=== PATIENT | male | born 1985 | race American Indian/Alaskan Native ===

== ENCOUNTER 2017-01-25 05:42 | Inpatient (IN) | payer MEDICAID ==
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
[2017-01-25] MEDS ORDERED: Sodium Chloride 0.9% 1,000 ML IV ONE (06:33)
[2017-01-25] MEDS ORDERED: Sulfacetamide Sodium 10% Ophth Soln OU STA (06:44)
[2017-01-25 06:55] LABS: BASO # 0.1 K/uL (0.0-0.2); BASO % 0.4 % (0.0-2.0); EOS # 0.2 K/uL (0.0-0.7); EOS % 1.9 % (0.0-4.0); HEMATOCRIT 35.3 % (35.0-51.0); LYMPH # 3.1 K/uL (1.0-4.3); LYMPH % 24.9 % (20.0-40.0); MEAN CELL VOLUME 94.4 fL (80.0-94.0); MEAN CORPUSCULAR HEMOGLOBIN 31.8 pg (27.0-31.0); MEAN CORPUSCULAR HGB CONC 33.7 g/dL (33.0-37.0); MEAN PLATELET VOLUME 6.9 fL (7.2-11.7); MONO # 1.5 K/uL (0.0-0.8); RED CELL DISTRIBUTION WIDTH 15.6 % (11.5-14.5); WHITE BLOOD COUNT 12.6 K/uL (4.8-10.8)
[2017-01-25 07:04] LABS: INR 1.1
[2017-01-25 07:06] LABS: VENOUS BLOOD GAS BASE EXCESS 8.1 mmol/L (0.0-2.0); VENOUS BLOOD GAS PCO2 48 mmHg (40-60); VENOUS BLOOD PH 7.45 (7.32-7.43)
[2017-01-25 07:22] LABS: CHLORIDE 90 mmol/L (98-107); POTASSIUM 2.7 mmol/L (3.6-5.2); SODIUM 139 mmol/L (132-148)
[2017-01-25 07:24] LABS: GFR AFRICAN-AMERICAN > 60
[2017-01-25 07:25] LABS: ALB/GLOB RATIO 1.1 (1.0-2.1); ALKALINE PHOSPHATASE 129 U/L (38-126); ALT/SGPT 127 U/L (21-72); AST/SGOT 170 U/L (17-59); BILIRUBIN,TOTAL 0.7 mg/dL (0.2-1.3); BLOOD UREA NITROGEN 14 mg/dL (9-20); CALCIUM 8.8 mg/dl (8.6-10.4); CARBON DIOXIDE 30 mmol/L (22-30); GLUCOSE,RANDOM 123 mg/dL (75-110); TOTAL PROTEIN 7.5 g/dL (6.3-8.3)
[2017-01-25] MEDS ORDERED: Potassium Chloride 20 mEq ER Tab PO STA (07:54)
--- NOTE | 2017-01-25 11:09 | RAD ---
HISTORY: hypokalemia COMPARISON: No prior. FINDINGS: LUNGS: No active pulmonary disease. PLEURA: No significant pleural effusion identified, no pneumothorax apparent. CARDIOVASCULAR: Normal. OSSEOUS STRUCTURES: No significant abnormalities. VISUALIZED UPPER ABDOMEN: Normal. OTHER FINDINGS: None. IMPRESSION: No active disease.
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
[2017-01-25 15:07] LABS: RBC URINE < 1 /hpf (0-3); URINE BILIRUBIN NEGATIVE (NEGATIVE); URINE BLOOD NEGATIVE (NEGATIVE); URINE COLOR Yellow (YELLOW); URINE GLUCOSE (UA) NORMAL (Normal); URINE KETONE NEGATIVE (NEGATIVE); URINE LEUKOCYTE ESTERASE NEG Leu/uL (Negative); URINE PROTEIN NEGATIVE (NEGATIVE); WBC URINE 3 /hpf (0-5)
[2017-01-25] MEDS: Silver Sulfadiazine 1% Cream (20 gm) TOP SCH (19:29)
[2017-01-25 19:41] LABS: CHLORIDE 91 mmol/L (98-107); POTASSIUM 2.7 mmol/L (3.6-5.2); SODIUM 136 mmol/L (132-148)
[2017-01-25 19:44] LABS: CARBON DIOXIDE 33 mmol/L (22-30); GFR AFRICAN-AMERICAN > 60
[2017-01-25 19:45] LABS: BLOOD UREA NITROGEN 13 mg/dL (9-20); CALCIUM 8.1 mg/dl (8.6-10.4); GLUCOSE,RANDOM 90 mg/dL (75-110)
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
[2017-01-25] MEDS ORDERED: Ceftaroline 600 MG in Sodium Chloride 0.9% 100 ML IVPB SCH (22:15)
[2017-01-26] MEDS: Ceftaroline 600 MG in Sodium Chloride 0.9% 100 ML IVPB SCH ×3 (00:02→22:25)
[2017-01-26 07:16] LABS: BASO % 0.4 % (0.0-2.0); EOS # 0.1 K/uL (0.0-0.7); EOS % 1.2 % (0.0-4.0); HEMATOCRIT 29.7 % (35.0-51.0); LYMPH % 19.1 % (20.0-40.0); MEAN CELL VOLUME 94.5 fL (80.0-94.0); MEAN CORPUSCULAR HEMOGLOBIN 31.9 pg (27.0-31.0); MEAN CORPUSCULAR HGB CONC 33.7 g/dL (33.0-37.0); MEAN PLATELET VOLUME 7.1 fL (7.2-11.7); MONO # 1.3 K/uL (0.0-0.8); MONO % 12.8 % (0.0-10.0); RED CELL DISTRIBUTION WIDTH 15.7 % (11.5-14.5); WHITE BLOOD COUNT 10.5 K/uL (4.8-10.8)
[2017-01-26 07:27] LABS: CHLORIDE 92 mmol/L (98-107); SODIUM 136 mmol/L (132-148)
[2017-01-26 07:29] LABS: GFR AFRICAN-AMERICAN > 60
[2017-01-26 07:30] LABS: ALKALINE PHOSPHATASE 98 U/L (38-126); ALT/SGPT 89 U/L (21-72); AST/SGOT 85 U/L (17-59); BILIRUBIN,TOTAL 0.8 mg/dL (0.2-1.3); BLOOD UREA NITROGEN 10 mg/dL (9-20); CALCIUM 7.8 mg/dl (8.6-10.4); CARBON DIOXIDE 34 mmol/L (22-30); GLUCOSE,RANDOM 93 mg/dL (75-110); TOTAL PROTEIN 5.8 g/dL (6.3-8.3)
[2017-01-26] MEDS: Silver Sulfadiazine 1% Cream (20 gm) TOP SCH ×2 (09:06→17:39)
[2017-01-26 09:07] LABS: MAGNESIUM 1.4 mg/dL (1.6-2.3)
[2017-01-26] MEDS ORDERED: Magnesium Sulfate 1 gm in D5W 1 GM/100 ML BAG IVPB ONE (13:00)
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
--- NOTE | 2017-01-26 22:01 | CARD ---
APPROVED REPORT EKG Measurement Heart [id number] DC [id number] [id number] <Conclusion> Sinus tachycardia Otherwise normal ECG
[2017-01-27 08:44] LABS: CHLORIDE 96 mmol/L (98-107); SODIUM 137 mmol/L (132-148)
[2017-01-27 08:45] LABS: BASO % 0.4 % (0.0-2.0); EOS # 0.2 K/uL (0.0-0.7); EOS % 1.5 % (0.0-4.0); HEMATOCRIT 33.2 % (35.0-51.0); LYMPH # 2.3 K/uL (1.0-4.3); LYMPH % 22.6 % (20.0-40.0); MEAN CORPUSCULAR HEMOGLOBIN 32.3 pg (27.0-31.0); MEAN CORPUSCULAR HGB CONC 33.2 g/dL (33.0-37.0); MEAN PLATELET VOLUME 7.4 fL (7.2-11.7); MONO # 1.1 K/uL (0.0-0.8); MONO % 10.9 % (0.0-10.0); POTASSIUM 3.3 mmol/L (3.6-5.2); RED CELL DISTRIBUTION WIDTH 15.2 % (11.5-14.5); WHITE BLOOD COUNT 10.1 K/uL (4.8-10.8)
[2017-01-27 08:47] LABS: ALKALINE PHOSPHATASE 110 U/L (38-126); AST/SGOT 136 U/L (17-59); BILIRUBIN,TOTAL 0.6 mg/dL (0.2-1.3); BLOOD UREA NITROGEN 9 mg/dL (9-20); CARBON DIOXIDE 30 mmol/L (22-30); GFR AFRICAN-AMERICAN > 60; GLUCOSE,RANDOM 78 mg/dL (75-110); TOTAL PROTEIN 6.3 g/dL (6.3-8.3)
[2017-01-27 08:48] LABS: ALT/SGPT 112 U/L (21-72); CALCIUM 8.4 mg/dl (8.6-10.4); MAGNESIUM 1.6 mg/dL (1.6-2.3); MEAN CELL VOLUME 97.5 fL (80.0-94.0)
[2017-01-27] MEDS: Silver Sulfadiazine 1% Cream (20 gm) TOP SCH ×2 (10:24→17:24)
[2017-01-27] MEDS: Ceftaroline 600 MG in Sodium Chloride 0.9% 100 ML IVPB SCH ×2 (11:40→22:21)
[2017-01-27] MEDS: Potassium Chloride 20 mEq ER Tab PO SCH (12:54)
--- NOTE | 2017-01-27 14:29 | CP.PCM.PN ---
Subjective - Date & Time of Evaluation Date of Evaluation: 01/27/17 Time of Evaluation: 14:27 - Subjective Subjective: afebrile leess feet pain k 3.3 iv kcl wound thigh healing culture pending Objective - Vital Signs/Intake and Output Vital Signs (last 24 hours): Temp Pulse Resp BP Pulse Ox 98.5 F 84 20 137/94 H 98 01/26/17 23:54 01/26/17 23:54 01/26/17 23:54 01/26/17 23:54 01/26/17 23:54 - Medications Medications: Current Medications Gabapentin (Neurontin) 100 mg PO TID [facility] Last Admin: 01/27/17 13:08 Dose: 100 mg Heparin Sodium (Porcine) (Heparin) 5,000 units SC Q12 [facility] Last Admin: 01/27/17 10:21 Dose: 5,000 units Ceftaroline Fosamil 600 mg/ (Sodium Chloride) 100 mls @ 100 mls/hr IVPB Q12H [facility] Last Admin: 01/27/17 11:40 Dose: 100 mls/hr Potassium Chloride (Potassium Chloride 20 Meq/100 Ml) 20 meq in 100 mls @ 50 mls/hr IVPB Q2 [facility] Stop: 01/27/17 15:59 Last Admin: 01/27/17 12:55 Dose: 50 mls/hr Nifedipine (Procardia) 10 mg PO DAILY [facility] Last Admin: 01/27/17 10:21 Dose: Not Given Ondansetron HCl (Zofran Inj) 4 mg IVP Q6H PRN PRN Reason: Nausea/Vomiting Pneumococcal Polyvalent Vaccine (Pneumovax 23 Vaccine) 0.5 ml IM .ONCE ONE Stop: 01/28/17 14:01 Potassium Chloride (K-Dur 20 Meq Er Tab) 40 meq PO DAILY [facility] Last Admin: 01/27/17 12:54 Dose: 40 meq Propranolol HCl (Inderal) 10 mg PO Q8H [facility] Last Admin: 01/27/17 13:08 Dose: 10 mg Silver Sulfadiazine (Silvadene 1% 20 Gm) 1 ea TOP BID [facility] Last Admin: 01/27/17 10:24 Dose: 1 applic Tramadol HCl (Ultram) 50 mg PO TID [facility] Last Admin: 01/27/17 13:07 Dose: 50 mg - Labs Labs: 01/27/17 08:20 01/27/17 08:20 PT 11.8 SECONDS (9.7-12.2) 01/25/17 06:52 INR 1.1 01/25/17 06:52 APTT 32 SECONDS (21-34) 01/25/17 06:52 Assessment and Plan (1) Burn Status: Acute (2) Foot pain, bilateral Status: Acute (3) Hypokalemia Status: Acute
[2017-01-28 00:48] VITALS: RESP 20
[2017-01-28] MEDS ORDERED: Enalaprilat 2.5 MG/2 ML IV ONE (00:50)
[2017-01-28] MEDS: Potassium Chloride 20 mEq ER Tab PO SCH (10:04)
[2017-01-28] MEDS: Silver Sulfadiazine 1% Cream (20 gm) TOP SCH ×2 (10:06→18:27)
[2017-01-28] MEDS: Ceftaroline 600 MG in Sodium Chloride 0.9% 100 ML IVPB SCH ×2 (10:06→22:04)
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
[2017-01-28] MEDS ORDERED: Pneumococcal 23-Valent Vaccine IM ONE (14:00)
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
[2017-01-29] MEDS ORDERED: Nitroglycerin 2% Ointment Foilpak UD TOP STA (08:21)
[2017-01-29] MEDS: Potassium Chloride 20 mEq ER Tab PO SCH (09:13)
[2017-01-29] MEDS: Silver Sulfadiazine 1% Cream (20 gm) TOP SCH ×2 (09:22→18:29)
--- NOTE | 2017-01-29 09:35 | US ---
Right upper quadrant abdominal ultrasound History: Elevated liver enzymes. Abdominal pain. Comparison: None available. Technique: Real-time sonography was performed through right upper quadrant of the abdomen. Findings: Liver: 20.3 centimeters in length. Diffuse increased echogenicity of the hepatic parenchymal cortex suggestive for fatty infiltration versus hepatic parenchymal disease. Clinical correlation. Gallbladder appears preserved. No calculi or sludge. Normal wall thickness of 2.5 millimeters. Negative sonographic Miguel's sign. Common bile duct measures 3 millimeters, within normal limits. Limited visualization of the pancreas. Visualized aorta and IVC are preserved. Right kidney: 12.5 x 4.4 x 6.1 centimeters. No calculi or hydronephrosis. Impression: Enlarged liver with diffuse increased echogenicity of the hepatic parenchymal cortex suggestive for fatty infiltration versus hepatic parenchymal disease. Clinical correlation. Limited visualization of the pancreas.
[2017-01-29] MEDS: NIFEdipine 30 mg ER Tab PO SCH (09:40)
[2017-01-29 11:57] LABS: BASO % 0.3 % (0.0-2.0); EOS # 0.2 K/uL (0.0-0.7); EOS % 1.9 % (0.0-4.0); LYMPH % 18.5 % (20.0-40.0); MEAN CORPUSCULAR HEMOGLOBIN 31.6 pg (27.0-31.0); MEAN CORPUSCULAR HGB CONC 33.6 g/dL (33.0-37.0); MEAN PLATELET VOLUME 7.5 fL (7.2-11.7); MONO # 1.4 K/uL (0.0-0.8); MONO % 13.2 % (0.0-10.0); NRBC % 0.1 % (0.0-2.0); RED CELL DISTRIBUTION WIDTH 15.7 % (11.5-14.5); WHITE BLOOD COUNT 10.7 K/uL (4.8-10.8)
[2017-01-29 12:00] LABS: MEAN CELL VOLUME 94.1 fL (80.0-94.0)
[2017-01-29 12:26] LABS: CHLORIDE 96 mmol/L (98-107); POTASSIUM 3.4 mmol/L (3.6-5.2); SODIUM 137 mmol/L (132-148)
[2017-01-29 12:28] LABS: GFR AFRICAN-AMERICAN > 60
[2017-01-29 12:29] LABS: ALKALINE PHOSPHATASE 131 U/L (38-126); ALT/SGPT 154 U/L (21-72); AST/SGOT 124 U/L (17-59); BILIRUBIN,DIRECT 0.6 mg/dL (0.0-0.4); BILIRUBIN,TOTAL 0.7 mg/dL (0.2-1.3); BLOOD UREA NITROGEN 8 mg/dL (9-20); CALCIUM 9.1 mg/dl (8.6-10.4); CARBON DIOXIDE 27 mmol/L (22-30); GLUCOSE,RANDOM 95 mg/dL (75-110)
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
[2017-01-29 18:53] LABS: IRON 96 ug/dL (49-181)
[2017-01-30] MEDS: Potassium Chloride 20 mEq ER Tab PO SCH (09:10)
[2017-01-30] MEDS: NIFEdipine 30 mg ER Tab PO SCH (09:10)
[2017-01-30] MEDS: Silver Sulfadiazine 1% Cream (20 gm) TOP SCH (09:12)
[2017-01-30 11:02] VITALS: BP 146/99; PULSE 93; TEMP 98.1; O2SAT 98
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
== END 2017-01-30 15:49 | disposition home or self-care (01) | DRG 827 ==
LOC: C.ER 05:42 → C.9E 08:57 → C.5T 09:27
PROVIDERS: ADMIT Internal Medicine Cardiovascular Disease; ATTEND Internal Medicine Cardiovascular Disease
DX: T24.212A Burn of second degree of left thigh, initial encounter (principal); E87.6 Hypokalemia; G62.1 Alcoholic polyneuropathy; K70.9 Alcoholic liver disease, unspecified; D72.829 Elevated white blood cell count, unspecified; E11.9 Type 2 diabetes mellitus without complications; F10.10 Alcohol abuse, uncomplicated; F17.210 Nicotine dependence, cigarettes, uncomplicated; E66.01 Morbid (severe) obesity due to excess calories; X11.8XXA Contact with other hot tap-water, initial encounter; Y92.9 Unspecified place or not applicable

== ENCOUNTER 2017-02-01 05:49 | Emergency (ER) | payer MEDICAID ==
[2017-02-01 06:04] VITALS: RESP 20
[2017-02-01] MEDS ORDERED: Sodium Chloride 0.9% 1,000 ML IV ONE (07:25)
[2017-02-01 07:55] LABS: CHLORIDE 105 mmol/L (98-107)
[2017-02-01 07:56] LABS: POTASSIUM 4.7 mmol/L (3.6-5.2); SODIUM 143 mmol/L (132-148)
[2017-02-01 07:59] LABS: ALB/GLOB RATIO 1.1 (1.0-2.1); ALKALINE PHOSPHATASE 132 U/L (38-126); ALT/SGPT 182 U/L (21-72); AST/SGOT 148 U/L (17-59); BILIRUBIN,TOTAL 0.6 mg/dL (0.2-1.3); BLOOD UREA NITROGEN 12 mg/dL (9-20); CALCIUM 9.6 mg/dl (8.6-10.4); CARBON DIOXIDE 18 mmol/L (22-30); GFR AFRICAN-AMERICAN > 60; GLUCOSE,RANDOM 108 mg/dL (75-110); TOTAL PROTEIN 7.7 g/dL (6.3-8.3)
[2017-02-01 08:10] LABS: BASO # 0.1 K/uL (0.0-0.2); BASO % 0.7 % (0.0-2.0); EOS # 0.2 K/uL (0.0-0.7); EOS % 1.6 % (0.0-4.0); LYMPH # 2.5 K/uL (1.0-4.3); MEAN CELL VOLUME 94.1 fL (80.0-94.0); MEAN CORPUSCULAR HEMOGLOBIN 31.4 pg (27.0-31.0); MEAN CORPUSCULAR HGB CONC 33.4 g/dL (33.0-37.0); MEAN PLATELET VOLUME 6.8 fL (7.2-11.7); MONO # 1.4 K/uL (0.0-0.8); MONO % 11.9 % (0.0-10.0); NRBC % 0.1 % (0.0-2.0); RED CELL DISTRIBUTION WIDTH 15.7 % (11.5-14.5)
[2017-02-01] MEDS ORDERED: Sodium Chloride 0.9% 1,000 ML ONE (08:15)
--- NOTE | 2017-02-01 08:39 | C.PDOC ---
History Of Present Illness 31 y/o male, history of DM, presents to ED with c/o burning sensation and tingling to bilateral feet for several months. Patient reports was recently admitted to hospital, discharged 2 days ago. Patient reports he felt tingling sensation in his hands soon after being discharged. Also states he has not taken medications since discharge from hospital. Denies fever, chills, chest pain, SOB, nausea, vomiting, urinary symptoms, or other complaints. Time Seen by Provider: 02/01/17 07:13 Chief Complaint (Nursing): Lower Extremity Problem/Injury History Per: Patient History/Exam Limitations: no limitations Onset/Duration Of Symptoms: Days Current Symptoms Are (Timing): Still Present Recent travel outside of the [place]: No Past Medical History Reviewed: Historical Data, Nursing Documentation, Vital Signs Vital Signs: Last Vital Signs Temp 98.5 F 02/01/17 09:32 Pulse 98 H 02/01/17 09:32 Resp 20 02/01/17 09:32 BP 144/89 02/01/17 09:32 Pulse Ox 99 02/01/17 09:32 - Medical History PMH: Diabetes Family History: States: Unknown Family Hx - Social History Hx Alcohol Use: Yes Hx Substance Use: No - Immunization History Hx Tetanus Toxoid Vaccination: No Hx Influenza Vaccination: No Hx Pneumococcal Vaccination: No Review Of Systems Except As Marked, All Systems Reviewed And Found Negative. Constitutional: Negative for: Fever, Chills Cardiovascular: Negative for: Chest Pain Respiratory: Negative for: Cough, Shortness of Breath, Wheezing Gastrointestinal: Negative for: Nausea, Vomiting, Abdominal Pain, Diarrhea Musculoskeletal: Positive for: Foot Pain (bilateral) Skin: Negative for: Rash Neurological: Positive for: Other (tingling sensation bilateral feet). Negative for: Headache Physical Exam - Physical Exam Appears: Non-toxic, No Acute Distress, Other (obese ) Skin: Warm, Dry Head: Atraumatic, Normacephalic Oral Mucosa: Moist Chest: Symmetrical Cardiovascular: Rhythm Regular Respiratory: Normal Breath Sounds, No Rales, No Rhonchi, No Wheezing Gastrointestinal/Abdominal: Soft, No Tenderness, No Guarding, No Rebound Back: Normal Inspection Extremity: Normal ROM, No Tenderness, Pedal Edema (trace, bilateral), Capillary Refill (< 2 sec.), No Deformity Extremity: Bilateral: Normal Color And Temperature Pulses: Left Dorsalis Pedis: Normal, Right Dorsalis Pedis: Normal Neurological/Psych: Oriented x3, Normal Speech, Normal Cognition, Normal Motor, Normal Sensation ED Course And Treatment - Laboratory Results Result Diagrams: 02/01/17 08:05 02/01/17 07:40 Lab Interpretation: No Acute Changes O2 Sat by Pulse Oximetry: 98 (RA) Pulse Ox Interpretation: Normal Medical Decision Making Medical Decision Making: Plan: * Ultram, gabaentin, Tylenol, IVFs * Labs * Reassess Progress: Labs reviewed showing no acute changes. Potassium is normal. Patient remained afebrile and in no acute distress. Explain results and symptoms likely related to neuropathy. Advise patient to continue his medications and follow up with PCP Disposition Counseled Patient/Family Regarding: Diagnosis, Need For Followup - Disposition Referrals: [facility] [Outside] [facility] [Outside] Disposition: HOME/ ROUTINE Disposition Time: 09:01 Condition: STABLE Additional Instructions: Follow up with your primary medical doctor or clinic in 2-5 days for further evaluation. Take your usual medications as prescribed. Return to the emergency department at any time if symptoms persist or worsen. Instructions: Paresthesia (ED) - POA Present On Arrival: None - Clinical Impression Clinical Impression: Foot pain, bilateral, Bilateral leg paresthesia - PA / GEOTECHNICIAN / Resident Statement MD/DO has reviewed & agrees with the documentation as recorded. - Scribe Statement The provider has reviewed the documentation as recorded by the Scribkarri Iqbal All medical record entries made by the Nellibkarri were at my direction and personally dictated by me. I have reviewed the chart and agree that the record accurately reflects my personal performance of the history, physical exam, medical decision making, and the department course for this patient. I have also personally directed, reviewed, and agree with the discharge instructions and disposition.
[2017-02-01 09:04] LABS: RBC URINE < 1 /hpf (0-3); URINE BILIRUBIN NEGATIVE (NEGATIVE); URINE BLOOD NEGATIVE (NEGATIVE); URINE COLOR Yellow (YELLOW); URINE GLUCOSE (UA) NORMAL (Normal); URINE KETONE NEGATIVE (NEGATIVE); URINE LEUKOCYTE ESTERASE NEG Leu/uL (Negative); URINE PROTEIN NEGATIVE (NEGATIVE); WBC URINE 1 /hpf (0-5)
[2017-02-01 09:33] VITALS: BP 144/89; PULSE 98; TEMP 98.5
[2017-02-01 09:52] VITALS: O2SAT 98
== END 2017-02-01 09:36 | disposition home or self-care (01) ==
LOC: C.ER 05:49
DX: R20.2 Paresthesia of skin (principal); M79.672 Pain in left foot; M79.671 Pain in right foot; E11.9 Type 2 diabetes mellitus without complications
CPT/HCPCS: 80053; 80324; 80345; 80346; 80349; 80353; 80358; 80361; 81001; 82009; 83992; 85025; 96360; 99284; J7040

== ENCOUNTER 2017-03-20 19:22 | Inpatient (IN) | payer MEDICAID ==
[2017-03-20] MEDS ORDERED: Sodium Chloride 0.9% 1,000 ML IV ONE (20:15)
[2017-03-20] MEDS ORDERED: Sodium Chloride 0.9% 1,000 ML ONE (20:29)
[2017-03-20 20:34] LABS: BASO # 0.1 K/uL (0.0-0.2); BASO % 0.5 % (0.0-2.0); EOS # 0.3 K/uL (0.0-0.7); EOS % 1.5 % (0.0-4.0); HEMATOCRIT 33.9 % (35.0-51.0); LYMPH # 2.7 K/uL (1.0-4.3); LYMPH % 11.4 % (20.0-40.0); MEAN CORPUSCULAR HEMOGLOBIN 30.9 pg (27.0-31.0); MEAN CORPUSCULAR HGB CONC 33.6 g/dL (33.0-37.0); MEAN PLATELET VOLUME 7.7 fL (7.2-11.7); MONO # 1.3 K/uL (0.0-0.8); MONO % 5.7 % (0.0-10.0); RED CELL DISTRIBUTION WIDTH 15.9 % (11.5-14.5)
[2017-03-20 20:36] LABS: WHITE BLOOD COUNT 23.5 K/uL (4.8-10.8)
--- NOTE | 2017-03-20 20:36 | C.PDOC ---
History Of Present Illness A 32 y/o male with a PMH of HTN, c/o severe pain to the hands and feet as a stocking and gloves distribution for weeks now. Patient was seen here January 25 initially c/o pain to his feet and had borderline diabetes and hypokalemia and was admitted given IV fluids and potassium and was discharge home. Patient had another visit on the 01 of February for continued burning sensation with the pain now to the hands and feet. Labs were done on the 2nd visit and he was diagnosed with neuropathy. Patient has been seeing Dr. Alejandre who treated him with vitamin D and Folic acid. Pain is intractable and hands and feet are swollen, erythematous , and hot. Denies fever, chills, trauma, or any other complaints. Time Seen by Provider: 03/20/17 20:05 Chief Complaint (Nursing): Abnormal Skin Integrity History Per: Patient History/Exam Limitations: no limitations Onset/Duration Of Symptoms: Days Current Symptoms Are (Timing): Still Present Location Of Injury: Right: Foot, Hand, Left: Foot, Hand Quality Of Symptoms: Painful Severity: Severe Recent travel outside of the [place]: No Additional History Per: Patient Past Medical History Reviewed: Historical Data, Nursing Documentation, Vital Signs Vital Signs: Last Vital Signs Temp 98.9 F 03/20/17 21:24 Pulse 130 H 03/20/17 21:24 Resp 20 03/20/17 21:24 BP 128/89 03/20/17 21:24 Pulse Ox 99 03/20/17 21:24 - Medical History PMH: Diabetes Denies: Chronic Kidney Disease Family History: States: Unknown Family Hx - Social History Hx Alcohol Use: No Hx Substance Use: No - Immunization History Hx Tetanus Toxoid Vaccination: No Hx Influenza Vaccination: No Hx Pneumococcal Vaccination: No Review Of Systems Except As Marked, All Systems Reviewed And Found Negative. Constitutional: Negative for: Fever, Chills, Other (Trauma) Musculoskeletal: Positive for: Hand Pain, Foot Pain Physical Exam - Physical Exam Appears: Non-toxic, In Acute Distress (Significant distress, crying due to pain. ), Other (Pain is intense and makes him nauseous. Crying and vomiting) Skin: Warm, Dry Head: Atraumatic, Normacephalic Cardiovascular: Rhythm Regular Respiratory: Normal Breath Sounds, No Rales, No Rhonchi, No Wheezing Gastrointestinal/Abdominal: Soft, No Tenderness Extremity: Normal ROM, Tenderness, Capillary Refill (<2secs), No Deformity, Other (Light touch causes pain to the hand and feet) Neurological/Psych: Oriented x3, Normal Speech, Normal Cognition ED Course And Treatment - Laboratory Results Result Diagrams: 03/20/17 20:31 03/20/17 20:31 Lab Interpretation: Abnormal (markedly elevated WBC with left shift, Normal glucose, Hypomagnesemia 1.4, Mildly elevated LFTs, ETOH 188.) O2 Sat by Pulse Oximetry: 99 (RA) Pulse Ox Interpretation: Normal Reevaluation Time: 21:57 Reassessment Condition: Unchanged (Patient continues to have pain in his hands and feet despite IV Morphine.) - Physician Consult Information Time Consulting Physician Contacted: 21:58 Physician Contacted: Lasha Vazquez Jr. 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 Medical Decision Making Medical Decision Making: Impression: A 32 y/o male with a PMH of HTN, c/o severe pain to the hands and feet as a stocking and gloves distribution for weeks now. Plans: * Blood work up * Morphine * IV fluids * UA * Reassess Disposition - Disposition Disposition: HOSPITALIZED Disposition Time: 21:57 Condition: FAIR - POA Present On Arrival: None - Clinical Impression Clinical Impression: Neuropathy - Scribe Statement The provider has reviewed the documentation as recorded by the Scribkarri simms All medical record entries made by the Scribe were at my direction and personally dictated by me. I have reviewed the chart and agree that the record accurately reflects my personal performance of the history, physical exam, medical decision making, and the department course for this patient. I have also personally directed, reviewed, and agree with the discharge instructions and disposition.
[2017-03-20 20:41] LABS: CHLORIDE 86 mmol/L (98-107)
[2017-03-20 20:42] LABS: SODIUM 133 mmol/L (132-148)
[2017-03-20 20:44] LABS: GFR AFRICAN-AMERICAN > 60
[2017-03-20 20:45] LABS: ALB/GLOB RATIO 1.1 (1.0-2.1); ALKALINE PHOSPHATASE 96 U/L (38-126); ALT/SGPT 99 U/L (21-72); AST/SGOT 114 U/L (17-59); BILIRUBIN,TOTAL 1.3 mg/dL (0.2-1.3); BLOOD UREA NITROGEN 15 mg/dL (9-20); CALCIUM 8.5 mg/dl (8.6-10.4); CARBON DIOXIDE 26 mmol/L (22-30); GLUCOSE,RANDOM 105 mg/dL (75-110); MAGNESIUM 1.4 mg/dL (1.6-2.3); TOTAL PROTEIN 8.1 g/dL (6.3-8.3)
[2017-03-20 20:46] LABS: ALCOHOL SERUM 188 mg/dl (0-10)
[2017-03-20 20:51] LABS: RBC URINE < 1 /hpf (0-3); URINE BACTERIA RARE (<OCC); URINE BILIRUBIN NEGATIVE (NEGATIVE); URINE BLOOD NEGATIVE (NEGATIVE); URINE COLOR Yellow (YELLOW); URINE GLUCOSE (UA) NORMAL (Normal); URINE KETONE NEGATIVE (NEGATIVE); URINE LEUKOCYTE ESTERASE NEG Leu/uL (Negative); URINE PROTEIN NEGATIVE (NEGATIVE); WBC URINE 2 /hpf (0-5)
[2017-03-20] MEDS ORDERED: Folic Acid 1 MG, Thiamine 100 MG, Multivitamin (MVI) 10 ML in Dextrose 5% In Water 1,00... IV STA (21:50)
[2017-03-21 01:52] LABS: FOLATE 7.2 ng/mL
--- NOTE | 2017-03-21 02:02 | CP.PCM.HP ---
History of Present Illness - History of Present Illness History of Present Illness: CC: "My hands and feet hurt and burn" Patient is a 32 year old male with PMHx significant for HTN and alcohol abuse who presents to the ER with complaint of 6 months of hand and feet burning. Patient states he came to the ER today because the pain was intolerable. Patient states the burning started in his feet and then progressed to include his hands. Patient states his hands are so swollen he has difficulty moving them but is still able to feed, clothe, and clean himself. Patient states he saw his PMD 1 month ago for this condition and was sent to a neurologist for nerve conduction studies. Patient does not recall the name of the neurologist and states he is supposed to follow up soon for the results of the study. Patient states his feet feel numb but he can feel pressure and can sense the floor when he is walking. Patient denies fever and chills but states he did vomit once today. Patient denies other complaints. 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 PMD: [facility] PMHx: HTN PSHx: right ankle surgery FamHx: denies SocialHx: sexually active with women, uses condoms most of the time; smokes a few cigarettes a day for 10 years; drinks 1 pint vodka daily for 5-10 years- last drink today, denies drugs; lives with grandfather; unemployed Present on Admission - Present on Admission Any Indicators Present on Admission: No Review of Systems - Constitutional Constitutional: absent: Chills, Fever - EENT Eyes: absent: Change in Vision Ears: absent: Dizziness - Cardiovascular Cardiovascular: absent: Chest Pain, Dyspnea - Respiratory Respiratory: absent: Cough - Gastrointestinal Gastrointestinal: Vomiting (once) - Genitourinary Genitourinary: absent: Difficulty Urinating, Dysuria - Musculoskeletal Musculoskeletal: Joint Swelling, Numbness, Stiffness, Tingling. absent: Neck Pain - Integumentary Integumentary: Erythema (denies peeling skin) - Neurological Neurological: Tingling - Psychiatric Psychiatric: absent: Anxiety Past Patient History - Past Medical History & Family History Past Medical History?: No - Past Social History Smoking Status: Current Some Days Smoker - CARDIAC Hx Cardiac Disorders: No - PULMONARY Hx Respiratory Disorders: No - NEUROLOGICAL Hx Neurological Disorder: No - HEENT Hx HEENT Problems: No - RENAL Hx Chronic Kidney Disease: No - ENDOCRINE/METABOLIC Hx Endocrine Disorders: No - HEMATOLOGICAL/ONCOLOGICAL Hx Blood Disorders: No - INTEGUMENTARY Hx Dermatological Problems: No - MUSCULOSKELETAL/RHEUMATOLOGICAL Hx Musculoskeletal Disorders: No Hx Falls: No - GASTROINTESTINAL Hx Gastrointestinal Disorders: No - GENITOURINARY/GYNECOLOGICAL Hx Genitourinary Disorders: No - PSYCHIATRIC Hx Substance Use: No - SURGICAL HISTORY Hx Surgeries: Yes Other/Comment: "RIGHT ANKLE SURGERY" - ANESTHESIA Hx Anesthesia: Yes Hx Anesthesia Reactions: No Meds Allergies/Adverse Reactions: Allergies Allergy/AdvReac Type Severity Reaction Status Date / Time No Known Allergies Allergy Verified 02/01/17 06:15 Physical Exam - Constitutional Appears: Non-toxic, No Acute Distress - Head Exam Head Exam: ATRAUMATIC, NORMOCEPHALIC - Eye Exam Eye Exam: EOMI. absent: Periorbital swelling - ENT Exam ENT Exam: Mucous Membranes Moist, Normal Oropharynx - Neck Exam Neck exam: Positive for: Full Rom, Normal Inspection. Negative for: Lymphadenopathy, Tenderness - Respiratory Exam Respiratory Exam: Clear to Auscultation Bilateral, NORMAL BREATHING PATTERN - Cardiovascular Exam Cardiovascular Exam: REGULAR RHYTHM, +S1, +S2 - GI/Abdominal Exam GI & Abdominal Exam: Normal Bowel Sounds, Soft. absent: Tenderness - Extremities Exam Additional comments: b/l hands with erythema, swelling of all digits fine sandpaper like rash on both hands feet b/l with erythema, non-pitting edema hands and feet with tenderness to palpation - Neurological Exam Neurological exam: Alert, CN II-XII Intact, Oriented x3 Additional comments: intact proprioception, no dysmetria on [id number] - Psychiatric Exam Psychiatric exam: Anxious - Skin Skin Exam: Dry, Rash, Warm Results - Vital Signs Recent Vital Signs: Last Vital Signs Temp 98.5 F 03/21/17 00:10 Pulse 110 H 03/21/17 00:10 Resp 20 03/21/17 00:10 BP 159/105 H 03/21/17 00:10 Pulse Ox 100 03/21/17 00:10 - Labs Result Diagrams: 03/20/17 20:31 03/20/17 20:31 Assessment & Plan - Assessment and Plan (Free Text) Assessment: Bilateral hand and foot pain, erythema WBC 23.5, platelets 595 will check blood culture will check rheum studies: lyme, RF, ESR, CRP will check HIV to r/o HIV associated neuropathy will check RPR will check B12, folate will start gabapentin for neuropathy HTN re-start home meds: nifedipine ER 30mg daily, metoprolol 50mg BID, catapres 0.2mg BID heart healthy diet Alcohol abuse alcohol level 188 patient receiving banana bag will start PO folic acid and multivitamin after completion banana bag CIWA protocol seizure precautions ativan IVP prn seizure activity Prophylactic measure pepcid 20mg PO daily heparin sc q8h Plan D/W Dr. Vazquez
[2017-03-21 06:15] LABS: BASO % 0.2 % (0.0-2.0); EOS # 0.4 K/uL (0.0-0.7); EOS % 1.8 % (0.0-4.0); HEMATOCRIT 31.9 % (35.0-51.0); LYMPH # 1.9 K/uL (1.0-4.3); LYMPH % 9.3 % (20.0-40.0); MEAN CELL VOLUME 91.5 fL (80.0-94.0); MEAN CORPUSCULAR HEMOGLOBIN 29.9 pg (27.0-31.0); MEAN CORPUSCULAR HGB CONC 32.7 g/dL (33.0-37.0); MEAN PLATELET VOLUME 7.5 fL (7.2-11.7); MONO # 1.5 K/uL (0.0-0.8); MONO % 7.4 % (0.0-10.0); PLATELET COUNT 511 K/uL (130-400); RED CELL DISTRIBUTION WIDTH 15.6 % (11.5-14.5); WHITE BLOOD COUNT 20.2 K/uL (4.8-10.8)
[2017-03-21 06:26] LABS: ALB/GLOB RATIO 1.2 (1.0-2.1); ALKALINE PHOSPHATASE 97 U/L (38-126); ALT/SGPT 98 U/L (21-72); AST/SGOT 60 U/L (17-59); BILIRUBIN,TOTAL 0.6 mg/dL (0.2-1.3); BLOOD UREA NITROGEN 12 mg/dL (9-20); CALCIUM 8.3 mg/dl (8.6-10.4); CARBON DIOXIDE 31 mmol/L (22-30); CHLORIDE 87 mmol/L (98-107); GFR AFRICAN-AMERICAN > 60; GLUCOSE,RANDOM 105 mg/dL (75-110); SODIUM 131 mmol/L (132-148); TOTAL PROTEIN 6.3 g/dL (6.3-8.3)
[2017-03-21 06:50] LABS: POTASSIUM 2.4 mmol/L (3.6-5.2)
[2017-03-21 08:45] LABS: CHLORIDE 87 mmol/L (98-107); SODIUM 135 mmol/L (132-148)
[2017-03-21 08:48] LABS: BLOOD UREA NITROGEN 11 mg/dL (9-20); CARBON DIOXIDE 32 mmol/L (22-30); GFR AFRICAN-AMERICAN > 60
[2017-03-21 08:49] LABS: CALCIUM 8.6 mg/dl (8.6-10.4); GLUCOSE,RANDOM 96 mg/dL (75-110)
[2017-03-21 08:50] LABS: POTASSIUM 2.5 mmol/L (3.6-5.2)
[2017-03-21] MEDS: Magnesium Sulfate 1 gm in D5W 1 GM/100 ML BAG IVPB SCH ×2 (08:54→10:16)
[2017-03-21] MEDS ORDERED: Potassium Chloride 20 mEq ER Tab PO ONE (09:00)
[2017-03-21] MEDS: Multiple Vitamins Tab PO SCH (09:06)
[2017-03-21 09:27] LABS: EOSINOPHIL 1 % (0-4); NEUTROPHIL 83 % (50-75); TOTAL CELLS COUNTED 100
[2017-03-21] MEDS: NIFEdipine 30 mg ER Tab PO SCH (09:27)
[2017-03-21] MEDS ORDERED: Potassium Chloride 20 mEq ER Tab PO SCH (10:00)
[2017-03-21] MEDS ORDERED: Potassium Chloride 20 mEq/15 ml LIQ UD PO SCH (10:30)
[2017-03-21] MEDS ORDERED: Potassium Chloride 40 MEQ in Sodium Chloride 0.9% 500 ML IV ONE (11:00)
[2017-03-21 11:17] LABS: MAGNESIUM 1.1 mg/dL (1.6-2.3); URIC ACID 8.6 mg/dL (3.5-8.5)
[2017-03-21 11:43] LABS: INR 1.1
[2017-03-21] MEDS: Potassium Chloride 20 mEq/15 ml LIQ UD PO SCH ×2 (12:30→17:52)
[2017-03-21 16:46] LABS: RAPID PLASMA REAGIN NONREACTIVE (NONREACTIVE)
--- NOTE | 2017-03-21 18:58 | CP.PCM.PN ---
<Kaur Kuhn - Last Filed: 03/21/17 19:31> Subjective - Date & Time of Evaluation Date of Evaluation: 03/21/17 Time of Evaluation: 07:00 - Subjective Subjective: Medicine Note for Dr. Vazquez Patient was seen and examined at bedside. Patient reports immense, intermittent bilateral hand pain. Patient's potassium was low this morning, patient vomited due to the number of pills he took. Potassium replenishment replaced in IV fluids instead. Denied fever, chills, headache, chest pain, abdominal pain, d/c , or urinary symptoms. Objective - Vital Signs/Intake and Output Vital Signs (last 24 hours): Temp Pulse Resp BP Pulse Ox 98.7 F 99 H 20 138/94 H 100 03/21/17 15:30 03/21/17 15:30 03/21/17 15:30 03/21/17 15:30 03/21/17 15:30 Intake and Output: 03/21/17 03/21/17 06:59 18:59 Intake Total 1000 680 Output Total 500 600 Balance 500 80 - Medications Medications: Current Medications Clonidine HCl (Catapres) 0.2 mg PO BID [facility] Last Admin: 03/21/17 17:52 Dose: 0.2 mg Famotidine (Pepcid) 20 mg PO DAILY [facility] Last Admin: 03/21/17 09:06 Dose: 20 mg Folic Acid (Folic Acid) 1 mg PO DAILY [facility] Last Admin: 03/21/17 09:05 Dose: 1 mg Gabapentin (Neurontin) 300 mg PO QPM [facility] Heparin Sodium (Porcine) (Heparin) 5,000 units SC Q8 [facility] Last Admin: 03/21/17 13:09 Dose: 5,000 units Potassium Chloride 40 meq/ (Sodium Chloride) 520 mls @ 60 mls/hr IV .Q8H40M ONE Stop: 03/21/17 19:39 Last Admin: 03/21/17 12:30 Dose: 60 mls/hr Ketorolac Tromethamine (Toradol) 30 mg IVP Q6 PRN PRN Reason: Pain, moderate (4-7) Last Admin: 03/21/17 13:05 Dose: 30 mg Lorazepam (Ativan) 2 mg IVP Q4H PRN PRN Reason: Seizure activity Metoprolol Tartrate (Lopressor) 50 mg PO BID [facility] Last Admin: 03/21/17 17:52 Dose: 50 mg Multivitamins (Hexavitamin) 1 tab PO DAILY [facility] Last Admin: 03/21/17 09:06 Dose: 1 tab Nifedipine (Procardia Xl) 30 mg PO DAILY [facility] Last Admin: 03/21/17 09:27 Dose: 30 mg Oxycodone/Acetaminophen (Percocet 5/325 Mg Tab) 1 tab PO Q6H PRN PRN Reason: Pain, severe (8-10) Stop: 03/24/17 12:43 Thiamine HCl (Vitamin B1 Tab) 100 mg PO DAILY [facility] Last Admin: 03/21/17 09:05 Dose: 100 mg - Labs Labs: 03/21/17 06:03 03/21/17 08:32 PT 13.0 SECONDS (9.7-12.2) H 03/21/17 11:28 INR 1.1 03/21/17 11:28 APTT 30 SECONDS (21-34) 03/21/17 11:28 - Constitutional Appears: No Acute Distress - Head Exam Head Exam: NORMAL INSPECTION, NORMOCEPHALIC - Eye Exam Eye Exam: EOMI, Normal appearance, PERRL. absent: Nystagmus, Scleral icterus - ENT Exam ENT Exam: Mucous Membranes Moist - Respiratory Exam Respiratory Exam: Clear to Ausculation Bilateral, NORMAL BREATHING PATTERN. absent: Decreased Breath Sounds, Wheezes - Cardiovascular Exam Cardiovascular Exam: REGULAR RHYTHM, RRR, +S1, +S2 - GI/Abdominal Exam GI & Abdominal Exam: Soft, Normal Bowel Sounds. absent: Distended, Tenderness - Extremities Exam Extremities Exam: Normal Inspection. absent: Pedal Edema, Tenderness - Back Exam Additional comments: b/l hands with erythema, swelling of all digits fine sandpaper like rash on both hands feet b/l with erythema, non-pitting edema hands and feet with tenderness to palpation - Neurological Exam Neurological Exam: Alert, Awake, Oriented x3 - Psychiatric Exam Psychiatric exam: Normal Affect, Normal Mood - Skin Skin Exam: Dry, Intact, Normal Color, Warm Assessment and Plan - Assessment and Plan (Free Text) Plan: Bilateral hand erythema * WBC 23.5, platelets 595 * Neurology consulted- Dr. Jens Silva- help appreciated - Place patient on Gabapentin 300mg PO QHS * Negative studies thus far: HIV, Hep panel, UDS, Hepatitis Panel, RPR, HIV, ASO , * WNL Labs: B12, folate * Elevated Labs: ESR, CRP * F/U blood culture * F/U rheum workup, other labs ordered Neuropathy * Bilateral hands and feet * As per Neurology, Gabapentin 300mg PO QHS Hypokalemia * 2.4, 2.5 * Repleted * F/U AM labs HTN * Restarted home meds: nifedipine ER 30mg daily, metoprolol 50mg BID, catapres 0.2mg BID * Heart healthy diet Alcohol abuse * Alcohol level 188 on admission * [place] protocol * Started PO folic acid, thiamine, and multivitamin after completion banana bag * seizure precaution * ativan IVP prn seizure activity Prophylactic measure * GI PPX: Pepcid 20mg PO daily * DVT PPX: Heparin sc q12h [facility] Hattie Miramontes DO, PGY-1 <Lasha Vazquez Jr. - Last Filed: 03/26/17 10:40> Objective - Vital Signs/Intake and Output Vital Signs (last 24 hours): Temp Pulse Resp BP Pulse Ox 98.0 F 99 H 18 156/90 H 100 03/25/17 08:02 03/25/17 08:02 03/25/17 08:02 03/25/17 08:02 03/25/17 08:02 - Labs Labs: 03/25/17 08:13 03/25/17 08:13 PT 13.0 SECONDS (9.7-12.2) H 03/21/17 11:28 INR 1.1 03/21/17 11:28 APTT 30 SECONDS (21-34) 03/21/17 11:28 Attending/Attestation - Attestation I have personally seen and examined this patient.: Yes I have fully participated in the care of the patient.: Yes I have reviewed all pertinent clinical information, including history, physical exam and plan: Yes Notes (Text): 03/26/17 10:40 Agree with resident note and findings
[2017-03-22 06:28] LABS: BASO % 0.2 % (0.0-2.0); EOS # 0.3 K/uL (0.0-0.7); EOS % 2.2 % (0.0-4.0); HEMATOCRIT 35.1 % (35.0-51.0); LYMPH # 2.1 K/uL (1.0-4.3); LYMPH % 13.8 % (20.0-40.0); MEAN CELL VOLUME 92.9 fL (80.0-94.0); MEAN CORPUSCULAR HEMOGLOBIN 31.2 pg (27.0-31.0); MEAN CORPUSCULAR HGB CONC 33.6 g/dL (33.0-37.0); MEAN PLATELET VOLUME 7.7 fL (7.2-11.7); MONO # 1.1 K/uL (0.0-0.8); MONO % 7.4 % (0.0-10.0); NRBC % 0.1 % (0.0-2.0); WHITE BLOOD COUNT 15.1 K/uL (4.8-10.8)
[2017-03-22 06:48] LABS: ALB/GLOB RATIO 1.2 (1.0-2.1); ALKALINE PHOSPHATASE 102 U/L (38-126); ALT/SGPT 83 U/L (21-72); AST/SGOT 59 U/L (17-59); BILIRUBIN,TOTAL 0.5 mg/dL (0.2-1.3); BLOOD UREA NITROGEN 9 mg/dL (9-20); CALCIUM 8.7 mg/dl (8.6-10.4); CARBON DIOXIDE 28 mmol/L (22-30); CHLORIDE 98 mmol/L (98-107); GFR AFRICAN-AMERICAN > 60; GLUCOSE,RANDOM 146 mg/dL (75-110); MAGNESIUM 1.5 mg/dL (1.6-2.3); PHOSPHOROUS 3.7 mg/dL (2.5-4.5); POTASSIUM 3.6 mmol/L (3.6-5.2); SODIUM 139 mmol/L (132-148); TOTAL PROTEIN 6.4 g/dL (6.3-8.3)
[2017-03-22] MEDS: Multiple Vitamins Tab PO SCH (09:44)
[2017-03-22] MEDS: NIFEdipine 30 mg ER Tab PO SCH (10:01)
[2017-03-22] MEDS: Oxycodone/Acetaminophen 5/325 mg Tab PO PRN ×2 (10:02→22:06)
--- NOTE | 2017-03-22 13:03 | CON ---
HISTORY OF PRESENT ILLNESS: This is a 32-year-old male with past medical history of hypertension and alcohol abuse and complaint of pain and numbness, burning of both feet and came here because the pain was intolerable and also getting swelling. Symptoms started one and a half month ago. We put him on gabapentin. PAST MEDICAL HISTORY: Hypertension status post right ankle surgery. SOCIAL HISTORY: Smokes and drinks. ALLERGY: NO KNOWN DRUG ALLERGIES. PHYSICAL EXAMINATION HEENT: Normocephalic, atraumatic. NECK: Supple. NEUROLOGIC: Awake, alert and oriented x3. No aphasia. Cranial nerves II through XII are tested. Pupil reactive. EOM intact. Visual frances full. No facial asymmetry. Tongue midline. Motor examination, moves all the extremities spontaneously. Deep tendon reflexes 1+. Both plantars are downgoing. Sensory appears intact. Cerebellar and gait deferred. IMPRESSION AND PLAN: Neuropathy. We will increase gabapentin 300 mg p.o. t.i.d. Workup in progress. We will follow up. Parish Silva MD
--- NOTE | 2017-03-22 22:52 | CP.PCM.PN ---
<Brendan Reynoso - Last Filed: 03/23/17 00:40> Subjective - Date & Time of Evaluation Date of Evaluation: 03/23/17 Time of Evaluation: 18:10 - Subjective Subjective: PGY-[address] Vazquez Patient seen and examined at bedside. Patient complains of continued bilateral hands and feet pain. Patient states that he is unable to make a fist with his fingers. Patient states that he is very tender on the soles of his feet in particular. Patient denies fevers, chills, headaches, dizziness, chest pain, SOB , abdominal pain, dysuria. Objective - Vital Signs/Intake and Output Vital Signs (last 24 hours): Temp Pulse Resp BP Pulse Ox 98.5 F 95 H 20 111/75 100 03/22/17 15:03 03/22/17 15:03 03/22/17 15:03 03/22/17 15:03 03/22/17 15:03 Intake and Output: 03/22/17 03/23/17 18:59 06:59 Intake Total 400 Balance 400 - Medications Medications: Current Medications Clonidine HCl (Catapres) 0.2 mg PO BID [facility] Last Admin: 03/22/17 18:45 Dose: 0.2 mg Famotidine (Pepcid) 20 mg PO DAILY [facility] Last Admin: 03/22/17 09:45 Dose: 20 mg Folic Acid (Folic Acid) 1 mg PO DAILY [facility] Last Admin: 03/22/17 09:45 Dose: 1 mg Gabapentin (Neurontin) 300 mg PO TID [facility] Last Admin: 03/22/17 17:06 Dose: 300 mg Heparin Sodium (Porcine) (Heparin) 5,000 units SC Q12 [facility] Last Admin: 03/22/17 22:06 Dose: 5,000 units Ketorolac Tromethamine (Toradol) 30 mg IVP Q6 PRN PRN Reason: Pain, moderate (4-7) Last Admin: 03/22/17 17:06 Dose: 30 mg Lorazepam (Ativan) 2 mg IVP Q4H PRN PRN Reason: Seizure activity Metoprolol Tartrate (Lopressor) 50 mg PO BID [facility] Last Admin: 03/22/17 17:06 Dose: 50 mg Multivitamins (Hexavitamin) 1 tab PO DAILY [facility] Last Admin: 03/22/17 09:44 Dose: 1 tab Nifedipine (Procardia Xl) 30 mg PO DAILY [facility] Last Admin: 03/22/17 10:01 Dose: 30 mg Oxycodone/Acetaminophen (Percocet 5/325 Mg Tab) 1 tab PO Q6H PRN PRN Reason: Pain, severe (8-10) Stop: 03/24/17 12:43 Last Admin: 03/22/17 22:06 Dose: 1 tab Thiamine HCl (Vitamin B1 Tab) 100 mg PO DAILY [facility] Last Admin: 03/22/17 10:01 Dose: 100 mg - Labs Labs: 03/22/17 06:21 03/22/17 06:21 PT 13.0 SECONDS (9.7-12.2) H 03/21/17 11:28 INR 1.1 03/21/17 11:28 APTT 30 SECONDS (21-34) 03/21/17 11:28 - Constitutional Appears: No Acute Distress - Head Exam Head Exam: ATRAUMATIC, NORMAL INSPECTION, NORMOCEPHALIC - Eye Exam Eye Exam: EOMI, PERRL - ENT Exam ENT Exam: Mucous Membranes Moist - Respiratory Exam Respiratory Exam: Clear to Ausculation Bilateral. absent: Rales, Rhonchi, Wheezes - Cardiovascular Exam Cardiovascular Exam: REGULAR RHYTHM, +S1, +S2 - GI/Abdominal Exam GI & Abdominal Exam: Soft, Normal Bowel Sounds. absent: Tenderness - Extremities Exam Additional comments: Bilateral hands with erythema and swelling of all digits fine sandpaper like rash on the hands Both feet with erythema, non-pitting edema hands and feet with tenderness to palpation exquisite tenderness to palpation on the soles of the feet - Neurological Exam Neurological Exam: Alert, Awake, Oriented x3 - Skin Skin Exam: Dry, Intact, Warm Assessment and Plan - Assessment and Plan (Free Text) Plan: Bilateral hand erythema * WBC 23.5, platelets 595 * Neurology consulted- Dr. Jens Silva- help appreciated - Place patient on Gabapentin 300mg PO QHS * Dr. Parish Silva recommended increasing Gabapentin to 300 mg PO TID. * Negative studies thus far: HIV, Hep panel, UDS, Hepatitis Panel, RPR, HIV, ASO , * WNL Labs: B12, folate * Elevated Labs: ESR, CRP * F/U blood culture * EVAN neg * F/U rheum workup, other labs ordered Neuropathy * Bilateral hands and feet * As per Neurology, Gabapentin 300mg PO QHS Hypokalemia * 2.4, 2.5 * Repleted--3.6 today * F/U AM labs HTN * Restarted home meds: nifedipine ER 30mg daily, metoprolol 50mg BID, catapres 0.2mg BID * Heart healthy diet Alcohol abuse * Alcohol level 188 on admission * [place] protocol * Started PO folic acid, thiamine, and multivitamin after completion banana bag * seizure precaution * ativan IVP prn seizure activity Prophylactic measure * GI PPX: Pepcid 20mg PO daily * DVT PPX: Heparin sc q12h Case DW Dr. George Reynoso, PGY-1 <Lasha Vazquez Jr. - Last Filed: 03/26/17 10:44> Objective - Vital Signs/Intake and Output Vital Signs (last 24 hours): Temp Pulse Resp BP Pulse Ox 98.0 F 99 H 18 156/90 H 100 03/25/17 08:02 03/25/17 08:02 03/25/17 08:02 03/25/17 08:02 03/25/17 08:02 - Labs Labs: 03/25/17 08:13 03/25/17 08:13 PT 13.0 SECONDS (9.7-12.2) H 03/21/17 11:28 INR 1.1 03/21/17 11:28 APTT 30 SECONDS (21-34) 03/21/17 11:28 Attending/Attestation - Attestation I have personally seen and examined this patient.: Yes I have fully participated in the care of the patient.: Yes I have reviewed all pertinent clinical information, including history, physical exam and plan: Yes Notes (Text): 03/26/17 10:44 Agree with resident notes and findings
[2017-03-23 02:21] LABS: TOTAL PROTEIN, SERUM 6.4 g/dL (6.1-8.1)
[2017-03-23] MEDS: Oxycodone/Acetaminophen 5/325 mg Tab PO PRN ×3 (06:25→18:13)
[2017-03-23 06:37] LABS: BASO # 0.1 K/uL (0.0-0.2); BASO % 0.4 % (0.0-2.0); EOS # 0.3 K/uL (0.0-0.7); EOS % 2.1 % (0.0-4.0); HEMATOCRIT 30.1 % (35.0-51.0); LYMPH % 15.3 % (20.0-40.0); MEAN CELL VOLUME 93.5 fL (80.0-94.0); MEAN CORPUSCULAR HEMOGLOBIN 30.3 pg (27.0-31.0); MEAN CORPUSCULAR HGB CONC 32.4 g/dL (33.0-37.0); MONO # 1.2 K/uL (0.0-0.8); MONO % 8.9 % (0.0-10.0); RED CELL DISTRIBUTION WIDTH 15.7 % (11.5-14.5); WHITE BLOOD COUNT 13.2 K/uL (4.8-10.8)
[2017-03-23 06:52] LABS: CHLORIDE 98 mmol/L (98-107); POTASSIUM 3.4 mmol/L (3.6-5.2); SODIUM 139 mmol/L (132-148)
[2017-03-23 06:54] LABS: BILIRUBIN,TOTAL 0.4 mg/dL (0.2-1.3); GFR AFRICAN-AMERICAN > 60
[2017-03-23 06:55] LABS: ALB/GLOB RATIO 1.1 (1.0-2.1); ALKALINE PHOSPHATASE 96 U/L (38-126); ALT/SGPT 84 U/L (21-72); AST/SGOT 66 U/L (17-59); BLOOD UREA NITROGEN 13 mg/dL (9-20); CALCIUM 8.3 mg/dl (8.6-10.4); CARBON DIOXIDE 31 mmol/L (22-30); GLUCOSE,RANDOM 99 mg/dL (75-110); PHOSPHOROUS 4.4 mg/dL (2.5-4.5); TOTAL PROTEIN 5.8 g/dL (6.3-8.3)
[2017-03-23 06:56] LABS: MAGNESIUM 1.3 mg/dL (1.6-2.3)
[2017-03-23] MEDS ORDERED: Potassium Chloride 20 mEq ER Tab PO STA (08:49)
[2017-03-23] MEDS: NIFEdipine 30 mg ER Tab PO SCH (10:12)
[2017-03-23] MEDS: Multiple Vitamins Tab PO SCH (10:12)
--- NOTE | 2017-03-23 11:19 | CP.PCM.PN ---
<YousufPaul H - Last Filed: 03/23/17 20:16> Subjective - Date & Time of Evaluation Date of Evaluation: 03/23/17 Time of Evaluation: 09:00 - Subjective Subjective: Dr. Vazquez service: Patient seen in room. He is complaining about pain and swelling in both feet. He says the medication does not seem to help with the pain. He is sleeping when I walk into the room. He denies fever chills, chest pain, nausea, vomiting , diarrhea, shortness of breath. He says he feels a tightness in his feet. Objective - Vital Signs/Intake and Output Vital Signs (last 24 hours): Temp Pulse Resp BP Pulse Ox 978 F H 105 H 18 147/90 99 03/23/17 08:51 03/23/17 08:51 03/23/17 08:51 03/23/17 08:51 03/23/17 08:51 Intake and Output: 03/23/17 03/23/17 06:59 18:59 Output Total 500 Balance -500 - Medications Medications: Current Medications Clonidine HCl (Catapres) 0.2 mg PO BID [facility] Last Admin: 03/23/17 10:12 Dose: 0.2 mg Famotidine (Pepcid) 20 mg PO DAILY [facility] Last Admin: 03/23/17 10:12 Dose: 20 mg Folic Acid (Folic Acid) 1 mg PO DAILY [facility] Last Admin: 03/23/17 10:12 Dose: 1 mg Gabapentin (Neurontin) 300 mg PO TID [facility] Last Admin: 03/23/17 10:12 Dose: 300 mg Heparin Sodium (Porcine) (Heparin) 5,000 units SC Q12 [facility] Last Admin: 03/23/17 10:13 Dose: 5,000 units Lorazepam (Ativan) 2 mg IVP Q4H PRN PRN Reason: Seizure activity Metoprolol Tartrate (Lopressor) 50 mg PO BID [facility] Last Admin: 03/23/17 10:12 Dose: 50 mg Multivitamins (Hexavitamin) 1 tab PO DAILY [facility] Last Admin: 03/23/17 10:12 Dose: 1 tab Nifedipine (Procardia Xl) 30 mg PO DAILY [facility] Last Admin: 03/23/17 10:12 Dose: 30 mg Oxycodone/Acetaminophen (Percocet 5/325 Mg Tab) 1 tab PO Q6H PRN PRN Reason: Pain, severe (8-10) Stop: 03/24/17 12:43 Last Admin: 03/23/17 06:25 Dose: 1 tab Thiamine HCl (Vitamin B1 Tab) 100 mg PO DAILY [facility] Last Admin: 03/23/17 10:12 Dose: 100 mg - Labs Labs: 03/23/17 06:32 03/23/17 06:32 PT 13.0 SECONDS (9.7-12.2) H 03/21/17 11:28 INR 1.1 03/21/17 11:28 APTT 30 SECONDS (21-34) 03/21/17 11:28 - Constitutional Appears: Non-toxic, No Acute Distress - Eye Exam Eye Exam: Normal appearance Pupil Exam: NORMAL ACCOMODATION - Respiratory Exam Respiratory Exam: Clear to Ausculation Bilateral. absent: Rales, Rhonchi, Wheezes - Cardiovascular Exam Cardiovascular Exam: REGULAR RHYTHM, RRR, +S1, +S2. absent: Gallop, Rubs - GI/Abdominal Exam GI & Abdominal Exam: Soft, Normal Bowel Sounds. absent: Tenderness - Extremities Exam Extremities Exam: Tenderness. absent: Calf Tenderness - Neurological Exam Neurological Exam: Alert - Psychiatric Exam Psychiatric exam: Normal Affect, Normal Mood - Skin Skin Exam: Normal Color Assessment and Plan - Assessment and Plan (Free Text) Assessment: Bilateral hand erythema * 03/23: * WBC is improving to 13.2 this am, Rhuematoid factor and Lyme plus SPEP are pending, continue with PO medication * Previous note: * WBC 23.5, platelets 595 * Neurology consulted- Dr. Jens Silva- help appreciated - Place patient on Gabapentin 300mg PO QHS * Dr. Parish Silva recommended increasing Gabapentin to 300 mg PO TID. * Negative studies thus far: HIV, Hep panel, UDS, Hepatitis Panel, RPR, HIV, ASO , * WNL Labs: B12, folate * Elevated Labs: ESR, CRP * F/U blood culture * EVAN neg * F/U rheum workup, other labs ordered Neuropathy * Bilateral hands and feet * As per Neurology, Gabapentin 300mg PO QHS Hypokalemia * 03/23: K is 3.4, 40 meq KDUR ordered * 2.4, 2.5 * Repleted--3.6 today * F/U AM labs HTN * Restarted home meds: nifedipine ER 30mg daily, metoprolol 50mg BID, catapres 0.2mg BID * Heart healthy diet Alcohol abuse * 03/23: No signs of etoh withdrawl. * Alcohol level 188 on admission * [facility] protocol * Started PO folic acid, thiamine, and multivitamin after completion banana bag * seizure precaution * ativan IVP prn seizure activity Prophylactic measure * GI PPX: Pepcid 20mg PO daily * DVT PPX: Heparin sc q12h Case DW Dr. Vazquez <Lasha Vazquez Jr. - Last Filed: 03/26/17 10:45> Objective - Vital Signs/Intake and Output Vital Signs (last 24 hours): Temp Pulse Resp BP Pulse Ox 98.0 F 99 H 18 156/90 H 100 03/25/17 08:02 03/25/17 08:02 03/25/17 08:02 03/25/17 08:02 03/25/17 08:02 - Labs Labs: 03/25/17 08:13 03/25/17 08:13 PT 13.0 SECONDS (9.7-12.2) H 03/21/17 11:28 INR 1.1 03/21/17 11:28 APTT 30 SECONDS (21-34) 03/21/17 11:28 Attending/Attestation - Attestation I have personally seen and examined this patient.: Yes I have fully participated in the care of the patient.: Yes I have reviewed all pertinent clinical information, including history, physical exam and plan: Yes Notes (Text): 03/26/17 10:45 Agree with resident note and findings
[2017-03-24] MEDS: Oxycodone/Acetaminophen 5/325 mg Tab PO PRN ×2 (08:56→17:53)
[2017-03-24 09:39] LABS: BASO % 0.3 % (0.0-2.0); EOS # 0.2 K/uL (0.0-0.7); EOS % 1.4 % (0.0-4.0); LYMPH # 1.9 K/uL (1.0-4.3); LYMPH % 12.4 % (20.0-40.0); MEAN CELL VOLUME 92.8 fL (80.0-94.0); MEAN CORPUSCULAR HEMOGLOBIN 30.8 pg (27.0-31.0); MEAN CORPUSCULAR HGB CONC 33.2 g/dL (33.0-37.0); MEAN PLATELET VOLUME 7.6 fL (7.2-11.7); MONO # 1.7 K/uL (0.0-0.8); MONO % 11.1 % (0.0-10.0); RED CELL DISTRIBUTION WIDTH 16.2 % (11.5-14.5); WHITE BLOOD COUNT 15.4 K/uL (4.8-10.8)
[2017-03-24 09:45] LABS: CHLORIDE 96 mmol/L (98-107); POTASSIUM 3.9 mmol/L (3.6-5.2); SODIUM 135 mmol/L (132-148)
[2017-03-24 09:47] LABS: BILIRUBIN,TOTAL 0.5 mg/dL (0.2-1.3); GFR AFRICAN-AMERICAN > 60
[2017-03-24 09:48] LABS: ALB/GLOB RATIO 1.1 (1.0-2.1); ALKALINE PHOSPHATASE 86 U/L (38-126); ALT/SGPT 99 U/L (21-72); AST/SGOT 67 U/L (17-59); BLOOD UREA NITROGEN 9 mg/dL (9-20); CARBON DIOXIDE 30 mmol/L (22-30); GLUCOSE,RANDOM 104 mg/dL (75-110); PHOSPHOROUS 2.7 mg/dL (2.5-4.5); TOTAL PROTEIN 6.1 g/dL (6.3-8.3)
[2017-03-24 09:49] LABS: CALCIUM 8.8 mg/dl (8.6-10.4); MAGNESIUM 1.1 mg/dL (1.6-2.3)
[2017-03-24] MEDS: Multiple Vitamins Tab PO SCH (09:50)
[2017-03-24] MEDS: NIFEdipine 30 mg ER Tab PO SCH (09:50)
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
[2017-03-24] MEDS: CLOBETASOL 0.05% TOP SCH ×2 (14:35→17:54)
[2017-03-25 08:05] VITALS: BP 156/90; PULSE 99; RESP 18; TEMP 98; O2SAT 100
[2017-03-25 08:24] LABS: BASO # 0.1 K/uL (0.0-0.2); BASO % 0.4 % (0.0-2.0); EOS # 0.3 K/uL (0.0-0.7); EOS % 2.2 % (0.0-4.0); HEMATOCRIT 30.7 % (35.0-51.0); LYMPH # 2.3 K/uL (1.0-4.3); LYMPH % 15.2 % (20.0-40.0); MEAN CELL VOLUME 93.5 fL (80.0-94.0); MEAN CORPUSCULAR HEMOGLOBIN 30.6 pg (27.0-31.0); MEAN CORPUSCULAR HGB CONC 32.7 g/dL (33.0-37.0); MEAN PLATELET VOLUME 8.2 fL (7.2-11.7); MONO # 1.8 K/uL (0.0-0.8); MONO % 11.8 % (0.0-10.0); RED CELL DISTRIBUTION WIDTH 15.7 % (11.5-14.5); WHITE BLOOD COUNT 15.2 K/uL (4.8-10.8)
[2017-03-25 09:02] LABS: CHLORIDE 98 mmol/L (98-107); POTASSIUM 3.9 mmol/L (3.6-5.2); SODIUM 136 mmol/L (132-148)
[2017-03-25 09:04] LABS: ALB/GLOB RATIO 1.1 (1.0-2.1); AST/SGOT 57 U/L (17-59); BILIRUBIN,TOTAL 0.5 mg/dL (0.2-1.3); CARBON DIOXIDE 28 mmol/L (22-30); GFR AFRICAN-AMERICAN > 60; TOTAL PROTEIN 6.2 g/dL (6.3-8.3)
[2017-03-25 09:05] LABS: ALKALINE PHOSPHATASE 82 U/L (38-126); ALT/SGPT 92 U/L (21-72); BLOOD UREA NITROGEN 7 mg/dL (9-20); CALCIUM 8.7 mg/dl (8.6-10.4); GLUCOSE,RANDOM 93 mg/dL (75-110); MAGNESIUM 1.2 mg/dL (1.6-2.3)
[2017-03-25] MEDS: Oxycodone/Acetaminophen 5/325 mg Tab PO PRN (09:11)
[2017-03-25] MEDS: NIFEdipine 30 mg ER Tab PO SCH (09:11)
[2017-03-25] MEDS: Multiple Vitamins Tab PO SCH (09:12)
[2017-03-25] MEDS: Magnesium Oxide 400 mg Tab UD PO SCH ×2 (09:13→13:05)
[2017-03-25] MEDS: CLOBETASOL 0.05% TOP SCH (09:13)
[2017-03-25] MEDS ORDERED: DiphenhydrAMINE 50 mg/ml Inj IVP ONE (10:30)
[2017-03-25] MEDS ORDERED: DiphenhydrAMINE 12.5 mg/5 ml LIQ UD (5 ml) PO STA (11:48)
--- NOTE | 2017-03-25 12:44 | CP.PCM.DIS ---
Provider - Provider Date of Admission: 03/20/17 21:59 Attending physician: Lasha Vazquez Jr, MD Consults: Lo Silva Time Spent in preparation of Discharge (in minutes): 55 Hospital Course - Lab Results Lab Results: Micro Results 03/20/17 23:36 Blood-Venous Blood Culture - Preliminary NO GROWTH AFTER 4 DAYS 03/20/17 23:36 Blood-Venous Blood Culture - Preliminary NO GROWTH AFTER 4 DAYS Most Recent Lab Values WBC 15.2 K/uL (4.8-10.8) H 03/25/17 08:13 RBC 3.28 Mil/uL (4.40-5.90) L 03/25/17 08:13 Hgb 10.0 g/dL (12.0-18.0) L 03/25/17 08:13 Hct 30.7 % (35.0-51.0) L 03/25/17 08:13 MCV 93.5 fL (80.0-94.0) 03/25/17 08:13 MCH 30.6 pg (27.0-31.0) 03/25/17 08:13 MCHC 32.7 g/dL (33.0-37.0) L 03/25/17 08:13 RDW 15.7 % (11.5-14.5) H 03/25/17 08:13 Plt Count 400 K/uL (130-400) 03/25/17 08:13 MPV 8.2 fL (7.2-11.7) 03/25/17 08:13 Neut % (Auto) 70.4 % (50.0-75.0) 03/25/17 08:13 Lymph % (Auto) 15.2 % (20.0-40.0) L 03/25/17 08:13 [place] % (Auto) 11.8 % (0.0-10.0) H 03/25/17 08:13 Eos % (Auto) 2.2 % (0.0-4.0) 03/25/17 08:13 Baso % (Auto) 0.4 % (0.0-2.0) 03/25/17 08:13 Neut # 10.7 K/uL (1.8-7.0) H 03/25/17 08:13 Lymph # 2.3 K/uL (1.0-4.3) 03/25/17 08:13 [place] # 1.8 K/uL (0.0-0.8) H 03/25/17 08:13 Eos # 0.3 K/uL (0.0-0.7) 03/25/17 08:13 Baso # 0.1 K/uL (0.0-0.2) 03/25/17 08:13 Neutrophils % (Manual) 83 % (50-75) H 03/21/17 06:03 Lymphocytes % (Manual) 9 % (20-40) L 03/21/17 06:03 Monocytes % (Manual) 7 % (0-10) 03/21/17 06:03 Eosinophils % (Manual) 1 % (0-4) 03/21/17 06:03 Platelet Estimate Increased (NORMAL) H 03/21/17 06:03 Hypochromasia (manual) Slight 03/21/17 06:03 Poikilocytosis (manual Slight 03/21/17 06:03 Anisocytosis (manual) Slight 03/21/17 06:03 ESR 65 mm/hr (0-15) H 03/21/17 06:03 Sickle Cell Screen Negative (NEGATIVE) 03/25/17 09:53 PT 13.0 SECONDS (9.7-12.2) H 03/21/17 11:28 INR 1.1 03/21/17 11:28 APTT 30 SECONDS (21-34) 03/21/17 11:28 Sodium 136 mmol/L (132-148) 03/25/17 08:13 Potassium 3.9 mmol/L (3.6-5.2) 03/25/17 08:13 Chloride 98 mmol/L (98-107) 03/25/17 08:13 Carbon Dioxide 28 mmol/L (22-30) 03/25/17 08:13 Anion Gap 14 (10-20) 03/25/17 08:13 BUN 7 mg/dL (9-20) L 03/25/17 08:13 Creatinine 0.6 MG/DL (0.8-1.5) L 03/25/17 08:13 Est GFR ( Amer) > 60 03/25/17 08:13 Est GFR (Non-Af Amer) > 60 03/25/17 08:13 POC Glucose (mg/dL) 105 mg/dL (65-110) 03/24/17 11:19 Random Glucose 93 mg/dL (75-110) 03/25/17 08:13 Hemoglobin A1c 5.7 % (4.2-6.5) 03/21/17 10:15 Uric Acid 8.6 mg/dL (3.5-8.5) H 03/21/17 08:32 Calcium 8.7 mg/dl (8.6-10.4) 03/25/17 08:13 Phosphorus 5.0 mg/dL (2.5-4.5) H 03/25/17 08:13 Magnesium 1.2 mg/dL (1.6-2.3) L 03/25/17 08:13 Total Bilirubin 0.5 mg/dL (0.2-1.3) 03/25/17 08:13 AST 57 U/L (17-59) 03/25/17 08:13 ALT 92 U/L (21-72) H 03/25/17 08:13 Alkaline Phosphatase 82 U/L (38-126) 03/25/17 08:13 Total Creatine Kinase 120 U/L (55-170) 03/20/17 20:31 C-React Prot High Sens > 15.00 mg/L (1.00-3.00) H 03/21/17 06:03 Total Protein 6.2 g/dL (6.3-8.3) L 03/25/17 08:13 Total Protein (PEP) 6.4 g/dL (6.1-8.1) 03/22/17 08:24 Albumin 3.3 g/dL (3.5-5.0) L 03/25/17 08:13 Globulin 2.9 gm/dL (2.2-3.9) 03/25/17 08:13 Albumin/Globulin Ratio 1.1 (1.0-2.1) 03/25/17 08:13 Vitamin B12 559 pg/mL (239-931) 03/20/17 23:45 Folate 7.2 ng/mL 03/20/17 23:45 Urine Color Yellow (YELLOW) 03/20/17 20:36 Urine Clarity Clear (Clear) 03/20/17 20:36 Urine pH 6.0 (5.0-8.0) 03/20/17 20:36 Ur Specific [place] 1.012 (1.003-1.030) 03/20/17 20:36 Urine Protein Negative mg/dL (NEGATIVE) 03/20/17 20:36 Urine Glucose (UA) Normal mg/dL (Normal) 03/20/17 20:36 Urine Ketones Negative mg/dL (NEGATIVE) 03/20/17 20:36 Urine Blood Negative (NEGATIVE) 03/20/17 20:36 Urine Nitrate Negative (NEGATIVE) 03/20/17 20:36 Urine Bilirubin Negative (NEGATIVE) 03/20/17 20:36 Urine Urobilinogen 4.0 mg/dL (0.2-1.0) 03/20/17 20:36 Ur Leukocyte Esterase Neg [place]/uL (Negative) 03/20/17 20:36 Urine WBC (Auto) 2 /hpf (0-5) 03/20/17 20:36 Urine RBC (Auto) < 1 /hpf (0-3) 03/20/17 20:36 Ur Squamous Epith Cells 4 /hpf (0-5) 03/20/17 20:36 Urine Bacteria Rare (<OCC) 03/20/17 20:36 Urine Opiates Screen Negative (NEGATIVE) 03/20/17 20:36 Urine Methadone Screen Negative (NEGATIVE) 03/20/17 20:36 Ur Barbiturates Screen Negative (NEGATIVE) 03/20/17 20:36 Ur Phencyclidine Scrn Negative (NEGATIVE) 03/20/17 20:36 Ur Amphetamines Screen Negative (NEGATIVE) 03/20/17 20:36 U Benzodiazepines Scrn Negative (NEGATIVE) 03/20/17 20:36 U Oth Cocaine Metabols Negative (NEGATIVE) 03/20/17 20:36 U Cannabinoids Screen Negative (NEGATIVE) 03/20/17 20:36 Alcohol, Quantitative 188 mg/dl (0-10) H 03/20/17 20:31 Serum Cryoglobulins Negative (NEGATIVE) 03/22/17 06:21 Rheumatoid Factor IgG <5 U (<=6) 03/21/17 06:03 Rheumatoid Factor IgA <5 U (<=6) 03/21/17 06:03 EVAN 6 Profile Negative (NEGATIVE) 03/21/17 06:03 RPR Nonreactive (NONREACTIVE) 03/21/17 06:03 Hepatitis A IgM Ab Negative (NEGATIVE) 03/21/17 10:15 Hep Bs Antigen Negative (NEGATIVE) 03/21/17 10:15 Hep B Core IgM Ab Negative (NEGATIVE) 03/21/17 10:15 Hepatitis C Antibody Negative (NEGATIVE) 03/21/17 10:15 HIV 1&2 Antibody Screen Negative (NEGATIVE) 03/20/17 23:45 Anti-Staphylolysin O Negative (NEGATIVE) 03/21/17 06:03 - Hospital Course Hospital Course: Upon admission: CC: "My hands and feet hurt and burn" Patient is a 32 year old male with PMHx significant for HTN and alcohol abuse who presents to the ER with complaint of 6 months of hand and feet burning. Patient states he came to the ER today because the pain was intolerable. Patient states the burning started in his feet and then progressed to include his hands. Patient states his hands are so swollen he has difficulty moving them but is still able to feed, clothe, and clean himself. Patient states he saw his PMD 1 month ago for this condition and was sent to a neurologist for nerve conduction studies. Patient does not recall the name of the neurologist and states he is supposed to follow up soon for the results of the study. Patient states his feet feel numb but he can feel pressure and can sense the floor when he is walking. Patient denies fever and chills but states he did vomit once today. Patient denies other complaints. 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 PMD: [facility] PMHx: HTN PSHx: right ankle surgery FamHx: denies SocialHx: sexually active with women, uses condoms most of the time; smokes a few cigarettes a day for 10 years; drinks 1 pint vodka daily for 5-10 years- last drink today, denies drugs; lives with grandfather; unemployed Throughout Hospital Course: Patient was admitted for neuropathy. Patient was seen by neurology, Dr. Lo Silva who ordered multiple laboratory exams. Patient follows up with a neurologist as outpatient, who had a nerve conduction study performed. He will need to make an appointment for results. All laboratory exams that have resulted thus far, are negative. Patient reports since being started on Gabapentin his pain is less and he is able to sleep at night. Patient is to be discharged on Gabapentin and to follow up with his PMD and neurology. This is a brief summary of the patient's hospital course, please review EMR for full review. Discharge Exam - Head Exam Head Exam: ATRAUMATIC, NORMAL INSPECTION, NORMOCEPHALIC - Eye Exam Eye Exam: Normal appearance Pupil Exam: NORMAL ACCOMODATION - ENT Exam ENT Exam: Mucous Membranes Moist - Respiratory Exam Respiratory Exam: Clear to PA & Lateral, NORMAL BREATHING PATTERN. absent: Decreased Breath Sounds - Cardiovascular Exam Cardiovascular Exam: REGULAR RHYTHM, RRR, +S1, +S2 - GI/Abdominal Exam GI & Abdominal Exam: Normal Bowel Sounds, Soft. absent: Distended, Tenderness - Extremities Exam Extremities exam: normal inspection, pedal pulses present Additional comments: both hands are less swollen and taught, able to flex and extend more, more ROM, no longer erythematous Discharge Plan - Discharge Medications Prescriptions: Gabapentin [Neurontin] 300 mg PO TID #90 cap - Follow Up Plan Condition: FAIR Disposition: HOME/ ROUTINE Additional Instructions: Patient is to continue his home medications with the addition of Gabapentin 300mg by mouth three times a day. Please follow up with Dr. Silva for continued care of your neuropathy. Please follow up with your personal neurologist, for the results of the nerve conduction study you had performed prior to admission. Please make an appointment with your Primary Care Physician after being discharge. If you do not have one, please make an appointment with Dr. Vazquez. Referrals: Lasha Vazquez Jr., MD [Medical Doctor] - Jens Silva MD [Staff Provider] -
[2017-03-25 16:50] LABS: IGG,SERUM 773 mg/dL (694-1618); IGM,SERUM 42 mg/dL (48-271)
[2017-03-25 19:18] LABS: Interpretation Negative (Negative)
[2017-03-26 02:10] LABS: DNA AB (DS) CRITH NEGATIVE (NEGATIVE)
[2017-03-26 11:47] LABS: RHEUMATOID FACTOR 6 IU/mL (<14)
[2017-03-26 20:33] LABS: BETA 1 GLOBULIN 0.5 g/dL (0.4-0.6); BETA 2 GLOBULIN 0.4 g/dL (0.2-0.5); GAMMA GLOBULIN 0.8 g/dL (0.8-1.7)
[2017-03-26 21:52] LABS: COLLECTION SAMPLE (C/V): Venous
[2017-03-27 00:56] LABS: SM ANTIBODY <1.0 NEG AI (<1.0 NEGATIVE)
[2017-03-27 02:42] LABS: PARIETAL CELL AB 27.5 U
[2017-03-27 07:25] LABS: LYME DISEASE SCREEN <0.90 index
[2017-03-28 00:30] LABS: RETICULIN AB IGA NEGATIVE (NEGATIVE)
[2017-03-28 01:53] LABS: MYOCARDIAL AB IF NEGATIVE (NEGATIVE)
[2017-03-29 10:13] LABS: HLA-DQ2(DQA*5/DQB1*02) Positive; HLA-DQ8(DQA*03/DQB1*0302) Negative
== END 2017-03-25 13:46 | disposition home or self-care (01) | DRG 18 ==
LOC: C.ER 19:22 → C.9E 21:59 → C.6T 22:53
PROVIDERS: ADMIT Internal Medicine; ATTEND Internal Medicine
DX: G62.9 Polyneuropathy, unspecified (principal); E87.6 Hypokalemia; I10 Essential (primary) hypertension; F10.10 Alcohol abuse, uncomplicated; F17.210 Nicotine dependence, cigarettes, uncomplicated; Y90.6 Blood alcohol level of 120-199 mg/100 ml

== ENCOUNTER 2017-04-02 21:21 | Emergency (ER) | payer MEDICAID ==
[2017-04-02 21:30] VITALS: O2SAT 99
--- NOTE | 2017-04-02 21:59 | C.PDOC ---
History Of Present Illness 32 y/o male c PMHx HTN presents to ED with complaint of paresthesia of hands and lower extremities for "months". Patient has presented to this ED multiple times with paresthesias of the hands and feet. He has been admitted multiple times, has had neurology consultation, and is currently on vitamins and gabapentin for peripheral neuropathy in a stocking/glove distribution. Patient states that since his last discharge, the numbness of the feet has begun to spread to his lower legs. Patient has f/u with PMD/neurology in earlier April. He has also had an outpatient nerve conduction study performed but never followed up for results. He denies any new trauma, fever, motor weakness, dyspnea. Time Seen by Provider: 04/02/17 21:29 Chief Complaint (Nursing): Weakness/Neurological Deficit History Per: Patient History/Exam Limitations: no limitations Onset/Duration Of Symptoms: Days Current Symptoms Are (Timing): Still Present Past Medical History Reviewed: Historical Data, Nursing Documentation, Vital Signs Vital Signs: Last Vital Signs Temp 98.8 F 04/02/17 21:27 Pulse 120 H 04/02/17 21:27 Resp 19 04/02/17 21:27 BP 140/85 04/02/17 21:27 Pulse Ox 99 04/02/17 22:24 - Medical History PMH: Diabetes, HTN Family History: States: Unknown Family Hx - Social History Hx Alcohol Use: Yes (3 TIMES A WEEK. VODKA) Hx Substance Use: No - Immunization History Hx Tetanus Toxoid Vaccination: No Hx Influenza Vaccination: No Hx Pneumococcal Vaccination: No Review Of Systems Except As Marked, All Systems Reviewed And Found Negative. Constitutional: Negative for: Fever, Chills Skin: Negative for: Rash Physical Exam - Physical Exam Additional Physical Exam Comments: Constitutional: No acute distress. Head: Normocephalic. Atraumatic. Eyes: PERRL. ENT: Moist mucous membranes. No oral lesions. Neck: Supple. Cardiovascular: Mild tachycardia. Radial pulse 2+ bilaterally. Chest: No tenderness. Respiratory: Clear to auscultation bilaterally. GI: Soft. Nontender. Nondistended. Back: No CVA tenderness. Musculoskeletal: No tenderness or swelling of extremities. Skin: Skin peeling over extremities. No blisters. Neurologic: Alert, no focal deficit. Sensation is intact in all 4 extremities. ED Course And Treatment - Laboratory Results Result Diagrams: 04/02/17 22:32 04/02/17 22:32 ECG: Interpreted By Me, Viewed By Me ECG Rhythm: Sinus Rhythm (109) Interpretation Of ECG: No ST/T elevation. No T-wave inversion. Rate From EC O2 Sat by Pulse Oximetry: 99 (RA) Pulse Ox Interpretation: Normal - Radiology CXR: Interpreted by Me, Viewed By Me CXR Interpretation: Yes: No Acute Disease Medical Decision Making Medical Decision Making: Patient has had multiple admission and extensive work up for periperal neuropathy. Today, no acute findings on labs, improved from last visit. Will increase dose of gabapentin, instructed to keep appointments with neurology and primary care. Counseled on avoidance of smoking, alcohol, drug use. 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 - Scribe Statement The provider has reviewed the documentation as recorded by the Nellibkarri Walters All medical record entries made by the Nellibkarri were at my direction and personally dictated by me. I have reviewed the chart and agree that the record accurately reflects my personal performance of the history, physical exam, medical decision making, and the department course for this patient. I have also personally directed, reviewed, and agree with the discharge instructions and disposition.
[2017-04-02 22:38] LABS: BASO % 0.3 % (0.0-2.0); EOS # 0.3 K/uL (0.0-0.7); EOS % 2.7 % (0.0-4.0); LYMPH # 2.8 K/uL (1.0-4.3); LYMPH % 22.6 % (20.0-40.0); MEAN CORPUSCULAR HEMOGLOBIN 30.4 pg (27.0-31.0); MEAN CORPUSCULAR HGB CONC 33.8 g/dL (33.0-37.0); MEAN PLATELET VOLUME 7.5 fL (7.2-11.7); MONO # 0.9 K/uL (0.0-0.8); MONO % 7.6 % (0.0-10.0); RED CELL DISTRIBUTION WIDTH 15.6 % (11.5-14.5); WHITE BLOOD COUNT 12.2 K/uL (4.8-10.8)
[2017-04-02 22:43] LABS: CHLORIDE 90 mmol/L (98-107)
[2017-04-02 22:44] LABS: POTASSIUM 3.2 mmol/L (3.6-5.2); SODIUM 138 mmol/L (132-148)
[2017-04-02 22:46] LABS: ALB/GLOB RATIO 1.2 (1.0-2.1); AST/SGOT 65 U/L (17-59); BILIRUBIN,TOTAL 0.6 mg/dL (0.2-1.3); CARBON DIOXIDE 27 mmol/L (22-30); GFR AFRICAN-AMERICAN > 60; TOTAL PROTEIN 7.4 g/dL (6.3-8.3)
[2017-04-02 22:47] LABS: ALKALINE PHOSPHATASE 99 U/L (38-126); ALT/SGPT 104 U/L (21-72); BLOOD UREA NITROGEN 12 mg/dL (9-20); CALCIUM 8.9 mg/dl (8.6-10.4); GLUCOSE,RANDOM 97 mg/dL (75-110); MAGNESIUM 1.2 mg/dL (1.6-2.3); PHOSPHOROUS 4.3 mg/dL (2.5-4.5)
[2017-04-02 22:52] LABS: RBC URINE < 1 /hpf (0-3); URINE BILIRUBIN NEGATIVE (NEGATIVE); URINE BLOOD NEGATIVE (NEGATIVE); URINE COLOR Yellow (YELLOW); URINE GLUCOSE (UA) NORMAL (Normal); URINE KETONE NEGATIVE (NEGATIVE); URINE LEUKOCYTE ESTERASE NEG Leu/uL (Negative); URINE PROTEIN NEGATIVE (NEGATIVE); WBC URINE 1 /hpf (0-5)
[2017-04-02 23:24] VITALS: BP 150/94; PULSE 101; RESP 16; TEMP 98.3
--- NOTE | 2017-04-03 11:20 | RAD ---
HISTORY: hand/foot numbness COMPARISON: No prior. FINDINGS: LUNGS: The lungs are well inflated and clear. PLEURA: No significant pleural effusion identified, no pneumothorax apparent. CARDIOVASCULAR: Normal. OSSEOUS STRUCTURES: No significant abnormalities. VISUALIZED UPPER ABDOMEN: Normal. OTHER FINDINGS: None. IMPRESSION: No active pulmonary disease.
--- NOTE | 2017-04-03 20:22 | CARD ---
APPROVED REPORT EKG Measurement Heart [id number] 130P-18 [id number] <Conclusion> Sinus tachycardia Cannot rule out Inferior infarct, age undetermined Prolonged QT Abnormal ECG
== END 2017-04-02 23:29 | disposition home or self-care (01) ==
LOC: C.ER 21:21
DX: G62.9 Polyneuropathy, unspecified (principal)
CPT/HCPCS: 71010; 80053; 80324; 80345; 80346; 80349; 80353; 80358; 80361; 81001; 82550; 83036; 83735; 83992; 84100; 85025; 93005; 96374; 99285; J2405

== ENCOUNTER 2017-04-30 03:28 | Emergency (ER) | payer MEDICAID ==
[2017-04-30 03:41] VITALS: RESP 20; TEMP 99.2; O2SAT 98
--- NOTE | 2017-04-30 04:06 | C.PDOC ---
History Of Present Illness 32 year old male presents to the ED seeking sutural removal that were from laceration repair of an unknown date, several weeks ago. Patient denies new trauma or any physical complaints. Time Seen by Provider: 04/30/17 03:49 Chief Complaint (Nursing): Wound Check History Per: Patient History/Exam Limitations: no limitations Onset/Duration Of Symptoms: Other (unknown, states several weeks ago ) Current Symptoms Are (Timing): Still Present Location Of Injury: Left: Thigh (upper thigh) Quality Of Symptoms: denies: Painful, Itching, Swollen, Draining Recent travel outside of the [place]: No Past Medical History Reviewed: Historical Data, Nursing Documentation, Vital Signs Vital Signs: Last Vital Signs Temp 99.2 F 04/30/17 03:38 Pulse 94 H 04/30/17 04:16 Resp 20 04/30/17 04:16 BP 140/94 H 04/30/17 04:16 Pulse Ox 98 04/30/17 05:36 - Medical History PMH: Diabetes, HTN Family History: States: Unknown Family Hx - Social History Hx Alcohol Use: Yes (3 TIMES A WEEK. VODKA) Hx Substance Use: No - Immunization History Hx Tetanus Toxoid Vaccination: No Hx Influenza Vaccination: No Hx Pneumococcal Vaccination: No Review Of Systems Constitutional: Negative for: Fever, Chills Gastrointestinal: Negative for: Nausea, Vomiting Neurological: Positive for: Other (suture removal at the left upper thigh) Physical Exam - Physical Exam Appears: Non-toxic, No Acute Distress Skin: Warm, Dry, Other (two healed suture wounds to lateral left upper leg. No evidence of cellulitis. ) Head: Atraumatic, Normacephalic Eye(s): bilateral: Normal Inspection, PERRL, EOMI Oral Mucosa: Moist Extremity: Normal ROM, No Tenderness, No Pedal Edema, No Calf Tenderness, Capillary Refill (good capillary refill, less than two seconds ), No Deformity, No Swelling Pulses: Left Femoral: Normal, Right Femoral: Normal Neurological/Psych: Oriented x3, Normal Motor, Normal Sensation Gait: Steady ED Course And Treatment O2 Sat by Pulse Oximetry: 98 (room air ) Pulse Ox Interpretation: Normal Medical Decision Making Medical Decision Making: Suture removal at the left upper thigh was performed by BRENT Wilde without difficulty. Disposition - Disposition Referrals: Non [facility] Provider, [Primary Care Provider] - Disposition: HOME/ ROUTINE Disposition Time: 04:14 Condition: GOOD Additional Instructions: Return if worsened. 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 - Scribe Statement The provider has reviewed the documentation as recorded by the Scribe Milli Palafox All medical record entries made by the Scribe were at my direction and personally dictated by me. I have reviewed the chart and agree that the record accurately reflects my personal performance of the history, physical exam, medical decision making, and the department course for this patient. I have also personally directed, reviewed, and agree with the discharge instructions and disposition.
[2017-04-30 04:16] VITALS: BP 140/94; PULSE 94
== END 2017-04-30 04:21 | disposition home or self-care (01) ==
LOC: C.ER 03:28 → SUPCPDRO 03:28 → C.ER 04:21
DX: Z48.02 Encounter for removal of sutures (principal)

== ENCOUNTER 2017-06-27 04:01 | Emergency (ER) | payer MEDICAID ==
[2017-06-27 04:22] VITALS: RESP 18
[2017-06-27] MEDS ORDERED: Sodium Chloride 0.9% 500 ML IV ONE ×2 (04:31→04:49)
[2017-06-27] MEDS ORDERED: Sodium Chloride 0.9% 1,000 ML IV ONE (04:32)
--- NOTE | 2017-06-27 04:34 | C.PDOC ---
History Of Present Illness 32 year old male presents to the ER with a complaint of generalized body aches for the past 3 days, mainly to the extremities. Denies fever or cough. Chief Complaint (Nursing): Abdominal Pain History Per: Patient History/Exam Limitations: no limitations Onset/Duration Of Symptoms: Days Current Symptoms Are (Timing): Still Present Location Of Pain/Discomfort: Other (Generalied body aches, mainly to extremites) Radiation Of Pain To:: None Quality Of Discomfort: Unable To Describe Associated Symptoms: denies: Fever, Chills, Nausea, Vomiting Exacerbating Factors: None Alleviating Factors: None Recent travel outside of the [place]: No Past Medical History Reviewed: Historical Data, Nursing Documentation, Vital Signs Vital Signs: Last Vital Signs Temp 98.1 F 06/27/17 04:17 Pulse 102 H 06/27/17 04:17 Resp 18 06/27/17 04:17 BP 111/74 06/27/17 04:17 Pulse Ox 99 06/27/17 05:29 - Medical History PMH: Diabetes, HTN Surgical History: No Surg Hx Family History: States: Unknown Family Hx - Social History Hx Alcohol Use: Yes Hx Substance Use: No - Immunization History Hx Tetanus Toxoid Vaccination: Yes Hx Influenza Vaccination: No Hx Pneumococcal Vaccination: No Review Of Systems Constitutional: Negative for: Fever Respiratory: Negative for: Cough Musculoskeletal: Positive for: Other (Generalized body aches) Physical Exam - Physical Exam Appears: Non-toxic, No Acute Distress, Other (Alert, conscious) Skin: Normal Color, Warm, Dry Head: Atraumatic, Normacephalic Oral Mucosa: Moist Neck: Normal, Supple Chest: Symmetrical, No Deformity, No Tenderness Cardiovascular: Rhythm Regular Respiratory: Normal Breath Sounds, No Rales, No Rhonchi, No Wheezing Gastrointestinal/Abdominal: Soft, Tenderness (LUQ), No Guarding, No Rebound Extremity: Normal ROM (x4), Other (psoriatic patches to bilateral lower extremities) Neurological/Psych: Oriented x3, Normal Speech ED Course And Treatment - Laboratory Results Result Diagrams: 06/27/17 04:45 06/27/17 04:45 ECG: Interpreted By Me, Viewed By Me ECG Rhythm: Sinus Rhythm ECG Interpretation: No Acute Changes, Abnormal Interpretation Of ECG: NSR, prolonged QT interval, abnormal tracings. Rate From EC O2 Sat by Pulse Oximetry: 99 (Room air) Pulse Ox Interpretation: Normal - Radiology CXR: Interpreted by Me, Viewed By Me CXR Interpretation: Yes: No Acute Disease, Other (normal chest film). No: Infiltrates Progress Note: EKG, blood work, CXR, flu swab, and urinalysis ordered. Toradol and IV fluids administered. Disposition Counseled Patient/Family Regarding: Diagnosis - Disposition Referrals: [facility] at [facility] [Outside] Disposition: HOME/ ROUTINE Disposition Time: 05:25 Condition: STABLE Additional Instructions: increased fluids by mouth Prescriptions: Naproxen 375 mg PO TIDPC #20 tablet Instructions: Psoriasis (ED), Musculoskeletal Pain (ED) Forms: [employer] (Czech) - POA Present On Arrival: None - Clinical Impression Clinical Impression: Muscular pain, Hepatic dysfunction, Proteinuria - Scribe Statement The provider has reviewed the documentation as recorded by the Scribkarri Irwin All medical record entries made by the Scribe were at my direction and personally dictated by me. I have reviewed the chart and agree that the record accurately reflects my personal performance of the history, physical exam, medical decision making, and the department course for this patient. I have also personally directed, reviewed, and agree with the discharge instructions and disposition.
[2017-06-27] MEDS ORDERED: Sodium Chloride 0.9% 1,000 ML ONE (04:49)
[2017-06-27 04:53] LABS: BASO # 0.1 K/uL (0.0-0.2); BASO % 0.9 % (0.0-2.0); EOS # 0.1 K/uL (0.0-0.7); EOS % 1.3 % (0.0-4.0); HEMATOCRIT 36.5 % (35.0-51.0); LYMPH # 2.9 K/uL (1.0-4.3); LYMPH % 25.6 % (20.0-40.0); MEAN CELL VOLUME 90.8 fL (80.0-94.0); MEAN CORPUSCULAR HEMOGLOBIN 30.8 pg (27.0-31.0); MEAN CORPUSCULAR HGB CONC 33.9 g/dL (33.0-37.0); MEAN PLATELET VOLUME 7.6 fL (7.2-11.7); MONO # 1.1 K/uL (0.0-0.8); MONO % 10.2 % (0.0-10.0); RED CELL DISTRIBUTION WIDTH 15.3 % (11.5-14.5); WHITE BLOOD COUNT 11.2 K/uL (4.8-10.8)
[2017-06-27 05:01] LABS: CALCIUM 7.9 mg/dl (8.6-10.4); GFR AFRICAN-AMERICAN > 60; GLUCOSE,RANDOM 100 mg/dL (75-110)
[2017-06-27 05:08] LABS: ALB/GLOB RATIO 1.4 (1.0-2.1); ALKALINE PHOSPHATASE 89 U/L (38-126); ALT/SGPT 214 U/L (21-72); AST/SGOT 233 U/L (17-59); BLOOD UREA NITROGEN 11 mg/dL (9-20); CARBON DIOXIDE 26 mmol/L (22-30); CHLORIDE 96 mmol/L (98-107); SODIUM 138 mmol/L (132-148); TOTAL PROTEIN 6.9 g/dL (6.3-8.3)
[2017-06-27 05:11] LABS: RBC URINE < 1 /hpf (0-3); URINE BILIRUBIN 1+ (NEGATIVE); URINE BLOOD NEGATIVE (NEGATIVE); URINE COLOR Amber (YELLOW); URINE GLUCOSE (UA) NORMAL (Normal); URINE HYALINE CAST >20 /lpf (0-2); URINE KETONE TRACE mg/dL (NEGATIVE); URINE LEUKOCYTE ESTERASE NEG Leu/uL (Negative); URINE PROTEIN 1+ mg/dL (NEGATIVE); WBC URINE 1 /hpf (0-5)
[2017-06-27 05:44] VITALS: BP 129/78; PULSE 99; TEMP 98; O2SAT 100
--- NOTE | 2017-06-27 10:09 | RAD ---
HISTORY: chest discomfort COMPARISON: Comparison is made to 04/02/2017 TECHNIQUE: Chest PA and lateral FINDINGS: LUNGS: No evidence of new infiltrate or consolidation in the lungs PLEURA: No significant pleural effusion identified. No pneumothorax apparent. CARDIOVASCULAR: Normal. OSSEOUS STRUCTURES: No significant abnormalities. VISUALIZED UPPER ABDOMEN: Normal. OTHER FINDINGS: None. IMPRESSION: No active disease.
--- NOTE | 2017-06-29 16:52 | CARD ---
APPROVED REPORT EKG Measurement Heart [id number] SD 116P-9 [id number] <Conclusion> Normal sinus rhythm Prolonged QT Abnormal ECG
== END 2017-06-27 05:44 | disposition home or self-care (01) ==
LOC: C.ER 04:01
DX: M79.1 Myalgia (principal); R80.9 Proteinuria, unspecified; K76.89 Other specified diseases of liver; I10 Essential (primary) hypertension; E11.9 Type 2 diabetes mellitus without complications; F17.210 Nicotine dependence, cigarettes, uncomplicated
CPT/HCPCS: 71020; 80053; 81001; 83690; 85025; 87804; 93005; 96361; 96374; 99284; J1885; J7040

== ENCOUNTER 2018-08-26 22:45 | Emergency (ER) | payer MEDICAID ==
[2018-08-26 23:06] VITALS: RESP 16
--- NOTE | 2018-08-26 23:09 | C.PDOC ---
History Of Present Illness Patient presents to the ER stating he has been having palpitations. He states he feels like his heart stops which wakes him up. Patient is currently speaking in complete sentences. He has an appointment in September for an echo. Denies chest pain or SOB. Time Seen by Provider: 08/26/18 23:08 Chief Complaint (Nursing): Palpitations History Per: Patient History/Exam Limitations: no limitations Onset/Duration Of Symptoms: Hrs Current Symptoms Are (Timing): Still Present Severity: Moderate Pain Scale Rating Of: 4 Recent travel outside of the [place]: No Past Medical History Reviewed: Historical Data, Nursing Documentation, Vital Signs Vital Signs: Last Vital Signs Temp 98.3 F 08/26/18 23:01 Pulse 90 08/26/18 23:01 Resp 16 08/26/18 23:01 BP 133/79 08/26/18 23:01 Pulse Ox 99 08/26/18 23:01 - Medical History PMH: Diabetes, HTN Denies: Chronic Kidney Disease Family History: States: No Known Family Hx - Social History Hx Alcohol Use: Yes Hx Substance Use: No - Immunization History Hx Tetanus Toxoid Vaccination: No Hx Influenza Vaccination: No Hx Pneumococcal Vaccination: No Review Of Systems Constitutional: Negative for: Fever, Chills Cardiovascular: Positive for: Palpitations. Negative for: Chest Pain Respiratory: Negative for: Cough, Shortness of Breath Gastrointestinal: Negative for: Nausea, Vomiting Neurological: Negative for: Weakness, Numbness Physical Exam - Physical Exam Appears: Non-toxic Skin: Warm, Dry, Other (psoriasis) Head: Normacephalic Eye(s): bilateral: Normal Inspection Oral Mucosa: Moist Neck: Trachea Midline, Supple Chest: Symmetrical, No Tenderness Cardiovascular: Rhythm Regular Respiratory: No Rales, No Rhonchi, No Wheezing Gastrointestinal/Abdominal: Soft, No Tenderness Neurological/Psych: Oriented x3 Gait: Steady ED Course And Treatment - Laboratory Results Result Diagrams: 08/26/18 23:55 ECG: Interpreted By Me, Viewed By Me ECG Rhythm: Sinus Rhythm (90), Nonspecific Changes (early repol) O2 Sat by Pulse Oximetry: 99 (Room air) Pulse Ox Interpretation: Normal - Radiology CXR: Interpreted by Me, Viewed By Me CXR Interpretation: Yes: Other (unchanged from 06/27/17). No: Infiltrates, Fracture, Pnemothorax Progress Note: EKG, blood work, CXR, and urinalysis ordered. Reevaluation Time: 05:53 Reassessment Condition: Improved Disposition Counseled Patient/Family Regarding: Studies Performed, Diagnosis, Need For Followup - Disposition Referrals: [facility] at [facility] [Outside] [facility] [Outside] Disposition: HOME/ ROUTINE Disposition Time: 23:09 Condition: FAIR Additional Instructions: Please return if symptoms recu Instructions: Palpitations (DC) Forms: [employer] (Malaysian) - Clinical Impression Clinical Impression: Palpitations - Scribe Statement The provider has reviewed the documentation as recorded by the Scribe Max Irwin All medical record entries made by the Scribe were at my direction and personally dictated by me. I have reviewed the chart and agree that the record accurately reflects my personal performance of the history, physical exam, medical decision making, and the department course for this patient. I have also personally directed, reviewed, and agree with the discharge instructions and disposition.
[2018-08-27 04:42] LABS: PROTHROMBIN TIME 11.1 SECONDS (9.7-12.2)
[2018-08-27 04:43] LABS: BLOOD UREA NITROGEN 13 mg/dL (9-20); CALCIUM 8.6 mg/dl (8.6-10.4); GFR NON-AFRICAN AMERICAN > 60
[2018-08-27 05:36] LABS: ALB/GLOB RATIO 1.5 (1.0-2.1); ALBUMIN 4.9 g/dL (3.5-5.0); ALT/SGPT 20 U/L (21-72); AST/SGOT 44 U/L (17-59)
[2018-08-27 06:02] LABS: BASO # 0.1 K/uL (0.0-0.2); BASO % 0.6 % (0.0-2.0); EOS # 0.2 K/uL (0.0-0.7); EOS % 2.4 % (0.0-4.0); HEMOGLOBIN 12.8 g/dL (12.0-18.0); LYMPH # 2.8 K/uL (1.0-4.3); LYMPH % 31.1 % (20.0-40.0); MEAN CELL VOLUME 87.8 fL (80.0-94.0); MEAN CORPUSCULAR HEMOGLOBIN 28.5 pg (27.0-31.0); MEAN CORPUSCULAR HGB CONC 32.5 g/dL (33.0-37.0); MEAN PLATELET VOLUME 7.4 fL (7.2-11.7); MONO # 0.8 K/uL (0.0-0.8); MONO % 8.4 % (0.0-10.0); NEUT # 5.2 K/uL (1.8-7.0); NEUT % 57.5 % (50.0-75.0); RBC 4.49 Mil/uL (4.40-5.90); RED CELL DISTRIBUTION WIDTH 14.2 % (11.5-14.5); WHITE BLOOD COUNT 9.1 K/uL (4.8-10.8)
[2018-08-27 06:03] VITALS: BP 114/70; PULSE 81; TEMP 98.7; O2SAT 96
[2018-08-27 07:43] LABS: URINE CLARITY Clear (Clear); URINE COLOR YELLOW (YELLOW); URINE GLUCOSE (UA) Normal (Normal)
[2018-08-27 07:44] LABS: URINE BILIRUBIN NEGATIVE (NEGATIVE); URINE BLOOD NEGATIVE (NEGATIVE)
[2018-08-27 07:45] LABS: SQUAMOUS EPITHIAL < 1 /hpf (0-5); URINE LEUKOCYTE ESTERASE Negative Leu/uL (Negative); URINE PROTEIN NEGATIVE (NEGATIVE); URINE UROBILINOGEN Normal mg/dL (0.2-1.0)
--- NOTE | 2018-08-27 09:34 | RAD ---
Date of service: 08/26/2018 HISTORY: Palpations COMPARISON: Chest radiographs 06/27/2017. FINDINGS: LUNGS: No active pulmonary disease. PLEURA: No significant pleural effusion identified, no pneumothorax apparent. CARDIOVASCULAR: No aortic atherosclerotic calcification present. Normal cardiac size. No pulmonary vascular congestion. OSSEOUS STRUCTURES: No significant abnormalities. VISUALIZED UPPER ABDOMEN: Normal. OTHER FINDINGS: None. IMPRESSION: No interval acute cardiopulmonary disease appreciated.
--- NOTE | 2018-08-27 11:07 | CARD ---
APPROVED REPORT Date of service: 08/26/2018 EKG Measurement Heart [id number] <Conclusion> Normal sinus rhythm ST elevation, consider early repolarization, pericarditis, or injury Abnormal ECG
== END 2018-08-27 06:16 | disposition home or self-care (01) ==
LOC: C.ER 22:45
DX: R00.2 Palpitations (principal)

== ENCOUNTER 2018-09-16 05:53 | Emergency (ER) | payer MEDICAID ==
--- NOTE | 2018-09-16 06:19 | C.PDOC ---
History Of Present Illness 33 year old male presents to the ED c/o feeling anxious and palpitations that woke him from sleep. Patient states he sometimes wakes up from sleep with his heart pounding and feels like he snores. Patient denies fever, chills, headache, visual changes, SOB, nausea, vomit, weakness, numbness. <Christin Botello - Last Filed: 09/16/18 06:36> History Per: Patient History/Exam Limitations: no limitations Onset/Duration Of Symptoms: Hrs Current Symptoms Are (Timing): Still Present Recent travel outside of the [place]: No Additional History Per: Patient <Christin Botello - Last Filed: 09/16/18 06:36> <Ana María Hendrix - Last Filed: 09/16/18 09:00> Time Seen by Provider: 09/16/18 06:19 Chief Complaint (Nursing): Palpitations Past Medical History Reviewed: Historical Data, Nursing Documentation, Vital Signs Vital Signs: Last Vital Signs Temp 98.8 F 09/16/18 06:02 Pulse 130 H 09/16/18 06:02 Resp 20 09/16/18 06:02 BP 154/126 H 09/16/18 06:02 Pulse Ox 100 09/16/18 06:02 - Medical History PMH: Diabetes, HTN Denies: Chronic Kidney Disease Surgical History: No Surg Hx Family History: States: Unknown Family Hx - Social History Hx Alcohol Use: Yes Hx Substance Use: No - Immunization History Hx Tetanus Toxoid Vaccination: No Hx Influenza Vaccination: No Hx Pneumococcal Vaccination: No <Christin Botello - Last Filed: 09/16/18 06:36> Vital Signs: Last Vital Signs Temp 98.8 F 09/16/18 06:02 Pulse 91 H 09/16/18 07:23 Resp 17 09/16/18 07:23 BP 124/77 09/16/18 07:23 Pulse Ox 99 09/16/18 07:23 <Ana María Hendrix - Last Filed: 09/16/18 09:00> Review Of Systems Constitutional: Negative for: Fever, Chills Eyes: Negative for: Vision Change Cardiovascular: Positive for: Palpitations. Negative for: Chest Pain Respiratory: Negative for: Cough, Shortness of Breath Gastrointestinal: Negative for: Nausea, Vomiting, Abdominal Pain Skin: Negative for: Rash Neurological: Negative for: Weakness, Numbness, Headache, Dizziness <SapbertaValdi - Last Filed: 09/16/18 06:36> Physical Exam - Physical Exam Appears: Non-toxic, No Acute Distress Skin: Warm, Dry Head: Normacephalic Eye(s): bilateral: Normal Inspection, PERRL, EOMI Neck: Supple Chest: Symmetrical Cardiovascular: Rhythm Regular Respiratory: No Rales, No Rhonchi, No Wheezing Gastrointestinal/Abdominal: Soft, No Tenderness, No Guarding, No Rebound Extremity: Bilateral: Atraumatic, Normal Color And Temperature, Normal ROM Neurological/Psych: Oriented x3, Normal Speech, Normal Cognition Gait: Steady <AyanValdi - Last Filed: 09/16/18 06:36> ED Course And Treatment ECG: Interpreted By Me, Viewed By Me ECG Rhythm: Sinus Rhythm (93), R BBB O2 Sat by Pulse Oximetry: 100 (On RA) Pulse Ox Interpretation: Normal - Radiology CXR: Interpreted by Me, Viewed By Me CXR Interpretation: Yes: Other (unchanged from 08/26/18). No: Infiltrates, Fracture, Pnemothorax Progress Note: Plan: - EKG. - CXR. - Labs. - UA <Tiffani Botellodi - Last Filed: 09/16/18 06:36> - Laboratory Results Result Diagrams: 09/16/18 06:57 09/16/18 06:57 Lab Results: PT 11.4 SECONDS (9.7-12.2) 09/16/18 06:57 INR 1.0 09/16/18 06:57 APTT 33 SECONDS (21-34) 09/16/18 06:57 Troponin I < 0.0120 ng/mL (0.00-0.120) 09/16/18 06:57 Total Bilirubin 1.1 mg/dL (0.2-1.3) 09/16/18 06:57 AST 105 U/L (17-59) H D 09/16/18 06:57 ALT 42 U/L (21-72) 09/16/18 06:57 Alkaline Phosphatase 86 U/L (38-126) 09/16/18 06:57 Total Protein 8.3 g/dL (6.3-8.3) 09/16/18 06:57 Albumin 5.1 g/dL (3.5-5.0) H 09/16/18 06:57 Globulin 3.2 gm/dL (2.2-3.9) 09/16/18 06:57 Albumin/Globulin Ratio 1.6 (1.0-2.1) 09/16/18 06:57 Urine Color [place] (YELLOW) 09/16/18 07:17 Urine Clarity Hazy (Clear) 09/16/18 07:17 Urine pH 6.5 (5.0-8.0) 09/16/18 07:17 Ur Specific [place] 1.020 (1.003-1.030) 09/16/18 07:17 Urine Protein 30 mg/dL (NEGATIVE) 09/16/18 07:17 Urine Glucose (UA) Negative mg/dL (Normal) 09/16/18 07:17 Urine Ketones 15 mg/dL (NEGATIVE) 09/16/18 07:17 Urine Blood Negative (NEGATIVE) 09/16/18 07:17 Urine Nitrate Negative (NEGATIVE) 09/16/18 07:17 Urine Bilirubin Small (NEGATIVE) 09/16/18 07:17 Urine Urobilinogen 1.0 mg/dL (0.2-1.0) 09/16/18 07:17 Ur Leukocyte Esterase Negative Jackson/uL (Negative) 09/16/18 07:17 Urine WBC (Auto) 1 /hpf (0-5) 09/16/18 07:17 Urine RBC (Auto) 1 /hpf (0-3) 09/16/18 07:17 Ur Squamous Epith Cells < 1 /hpf (0-5) 09/16/18 07:17 Urine Bacteria Rare (<OCC) 09/16/18 07:17 Hyaline Casts >20 /lpf (0-2) H 09/16/18 07:17 <Ana María Hendrix - Last Filed: 09/16/18 09:00> Medical Decision Making Medical Decision Making: Patient signed out from Dr. Botello as pending labs and reevaluation. Labs grossly normal except for previously elevated AST. Cxray negative. No complaint of chest pain. Agree with Dr. Delgado assessment that presentation seems consistent with sleep apnea. Patient reports months long history of waking up fatigued after long sleeps, restless sleeping and feeling that he cannot breath while sleeping. patient reports family history of sleep apnea. Reports that he has seen his PMD for this complaint. Again instructed on importance of PMD follow-up for referral to pulmonary for sleep apnea evaluation. On reevaluation he has no complaints. <Ana María Hendrix - Last Filed: 09/16/18 09:00> Disposition Counseled Patient/Family Regarding: Studies Performed, Diagnosis - Disposition Disposition Time: 06:19 <Christin Botello - Last Filed: 09/16/18 06:36> Counseled Patient/Family Regarding: Studies Performed, Diagnosis <Ana María Hendrix - Last Filed: 09/16/18 09:00> - Disposition Referrals: Jerman Ortega MD [Staff Provider] - Disposition: HOME/ ROUTINE Condition: GOOD Additional Instructions: Follow-up with pulmonary for a sleep study. Return to ED if condition worsens. Follow-up with PMD within 2 days. Instructions: What Is a Sleep Study?, Tips for Getting Better Sleep, Obstructive Sleep Apnea, Adult (DC) Forms: [facility] (Guyanese) - Clinical Impression Clinical Impression: Sleep apnea, Restless sleeper - Scribe Statement The provider has reviewed the documentation as recorded by the Scribe Adam Dixon All medical record entries made by the Scribe were at my direction and personally dictated by me. I have reviewed the chart and agree that the record accurately reflects my personal performance of the history, physical exam, medical decision making, and the department course for this patient. I have also personally directed, reviewed, and agree with the discharge instructions and disposition. <Christin Botello - Last Filed: 09/16/18 06:36> Physician Patient Turnover Patient Signed Over To: Ana María Hendrix Handoff Comments: Pending labs, reeval and dispo <Christin Botello - Last Filed: 09/16/18 06:36>
[2018-09-16 07:00] LABS: BASO % 0.5 % (0.0-2.0); EOS # 0.1 K/uL (0.0-0.7); EOS % 1.2 % (0.0-4.0); HEMOGLOBIN 13.7 g/dL (12.0-18.0); LYMPH # 1.7 K/uL (1.0-4.3); LYMPH % 25.1 % (20.0-40.0); MEAN CELL VOLUME 87.4 fL (80.0-94.0); MEAN CORPUSCULAR HEMOGLOBIN 29.2 pg (27.0-31.0); MEAN CORPUSCULAR HGB CONC 33.4 g/dL (33.0-37.0); MEAN PLATELET VOLUME 8.2 fL (7.2-11.7); MONO # 0.9 K/uL (0.0-0.8); MONO % 13.2 % (0.0-10.0); NEUT # 4.1 K/uL (1.8-7.0); NRBC % 0.1 % (0.0-2.0); RBC 4.68 Mil/uL (4.40-5.90); RED CELL DISTRIBUTION WIDTH 14.6 % (11.5-14.5); WHITE BLOOD COUNT 6.8 K/uL (4.8-10.8)
[2018-09-16 07:08] LABS: PROTHROMBIN TIME 11.4 SECONDS (9.7-12.2)
--- NOTE | 2018-09-16 07:21 | RAD ---
Date of service: 09/16/2018 PROCEDURE: CHEST RADIOGRAPH, 1 VIEW HISTORY: chest pain COMPARISON: 08/26/2018 FINDINGS: LUNGS: Clear. PLEURA: No pneumothorax or pleural fluid seen. CARDIOVASCULAR: No aortic atherosclerotic calcification present. Normal. OSSEOUS STRUCTURES: No significant abnormalities. VISUALIZED UPPER ABDOMEN: Normal. OTHER FINDINGS: None. IMPRESSION: No active disease.No interval pathology noted. No preliminary written ER impression is available at this time.
[2018-09-16 07:33] LABS: ALB/GLOB RATIO 1.6 (1.0-2.1); ALBUMIN 5.1 g/dL (3.5-5.0); ALT/SGPT 42 U/L (21-72); AST/SGOT 105 U/L (17-59); BLOOD UREA NITROGEN 14 mg/dL (9-20); CALCIUM 9.4 mg/dl (8.6-10.4); GFR NON-AFRICAN AMERICAN > 60
[2018-09-16] MEDS ORDERED: Potassium Chloride 20 mEq ER Tab PO STA (07:40)
[2018-09-16] MEDS ORDERED: Potassium Chloride 20 mEq ER Tab PO ONE (07:55)
[2018-09-16 08:04] LABS: SQUAMOUS EPITHIAL < 1 /hpf (0-5); URINE BACTERIA RARE (<OCC); URINE HYALINE CAST >20 /lpf (0-2)
[2018-09-16 08:15] LABS: URINE BILIRUBIN SMALL (NEGATIVE); URINE CLARITY Hazy (Clear); URINE COLOR AMBER (YELLOW); URINE GLUCOSE (UA) NEGATIVE (Normal)
[2018-09-16 08:16] LABS: PH,URINE 6.5 (5.0-8.0); URINE BLOOD NEGATIVE (NEGATIVE); URINE PROTEIN 30 mg/dL (NEGATIVE)
[2018-09-16 08:17] LABS: URINE LEUKOCYTE ESTERASE NEGATIVE Leu/uL (Negative)
[2018-09-16 08:26] LABS: BARBITURATES, UR NEGATIVE (NEGATIVE); BENZODIAZEPINES, UR NEGATIVE (NEGATIVE); OPIATES, UR NEGATIVE (NEGATIVE); PHENCYCLIDINE, UR NEGATIVE (NEGATIVE)
[2018-09-16 09:20] VITALS: BP 129/74; PULSE 88; RESP 18; TEMP 98; O2SAT 97
--- NOTE | 2018-09-18 22:15 | CARD ---
APPROVED REPORT Date of service: 09/16/2018 EKG Measurement Heart [id number] <Conclusion> Normal sinus rhythm RSR' or QR pattern in V1 suggests right ventricular conduction delay Borderline ECG
== END 2018-09-16 09:21 | disposition home or self-care (01) ==
LOC: C.ER 05:53
DX: G47.30 Sleep apnea, unspecified (principal); E11.9 Type 2 diabetes mellitus without complications; I10 Essential (primary) hypertension

== ENCOUNTER 2018-09-21 10:17 | Emergency (ER) | payer MEDICAID ==
[2018-09-21 10:32] VITALS: O2SAT 100
[2018-09-21] MEDS ORDERED: Sodium Chloride 0.9% 1,000 ML IV ONE (10:56)
[2018-09-21 11:20] LABS: HEMOGLOBIN 13.2 g/dL (12.0-18.0); LYMPH # 1.7 K/uL (1.0-4.3); LYMPH % 18.8 % (20.0-40.0); MEAN CORPUSCULAR HGB CONC 32.8 g/dL (33.0-37.0); MONO # 1.2 K/uL (0.0-0.8)
[2018-09-21 11:26] LABS: BASO % 0.5 % (0.0-2.0); EOS # 0.2 K/uL (0.0-0.7); EOS % 1.7 % (0.0-4.0); MEAN CELL VOLUME 88.8 fL (80.0-94.0); MEAN CORPUSCULAR HEMOGLOBIN 29.1 pg (27.0-31.0); MEAN PLATELET VOLUME 9.2 fL (7.2-11.7); MONO % 14.1 % (0.0-10.0); NEUT # 5.7 K/uL (1.8-7.0); NEUT % 64.9 % (50.0-75.0); NRBC % 0.2 % (0.0-2.0); RBC 4.54 Mil/uL (4.40-5.90); RED CELL DISTRIBUTION WIDTH 14.8 % (11.5-14.5); WHITE BLOOD COUNT 8.9 K/uL (4.8-10.8)
[2018-09-21 11:33] LABS: SQUAMOUS EPITHIAL < 1 /hpf (0-5); URINE BILIRUBIN NEGATIVE (NEGATIVE); URINE BLOOD NEGATIVE (NEGATIVE); URINE CLARITY Clear (Clear); URINE COLOR Yellow (YELLOW); URINE GLUCOSE (UA) NORMAL (Normal); URINE LEUKOCYTE ESTERASE NEG Leu/uL (Negative); URINE PROTEIN NEGATIVE (NEGATIVE)
[2018-09-21 11:37] LABS: ALB/GLOB RATIO 1.4 (1.0-2.1); ALBUMIN 5.1 g/dL (3.5-5.0); ALT/SGPT 104 U/L (21-72); AST/SGOT 132 U/L (17-59); BLOOD UREA NITROGEN 13 mg/dL (9-20); CALCIUM 9.1 mg/dl (8.6-10.4); GFR NON-AFRICAN AMERICAN > 60
[2018-09-21 11:46] LABS: CK-MB 2.48 ng/mL (0.0-3.38)
[2018-09-21 12:03] LABS: BARBITURATES, UR NEGATIVE (NEGATIVE); BENZODIAZEPINES, UR NEGATIVE (NEGATIVE); OPIATES, UR NEGATIVE (NEGATIVE); PHENCYCLIDINE, UR NEGATIVE (NEGATIVE)
[2018-09-21] MEDS ORDERED: Sodium Chloride 0.9% 1,000 ML ONE (12:35)
--- NOTE | 2018-09-21 13:10 | RAD ---
Date of service: 09/21/2018 PROCEDURE: CHEST RADIOGRAPH, 1 VIEW HISTORY: SOB COMPARISON: Comparison is made with 09/16/2018 FINDINGS: LUNGS: Clear. PLEURA: No pneumothorax or pleural fluid seen. CARDIOVASCULAR: No aortic atherosclerotic calcification present. Normal. OSSEOUS STRUCTURES: No significant abnormalities. VISUALIZED UPPER ABDOMEN: Normal. OTHER FINDINGS: None. IMPRESSION: No active disease.
--- NOTE | 2018-09-21 13:22 | C.PDOC ---
History Of Present Illness Patient presents to ED c/o feeling like "something in my chest is stopping" x approx 1 month. He states is has been happening for 1 month, but initially would just wake him up from sleep. Today he has been feeling it all day, and it is associated with "difficulty breathing". Patient denies chest pain, palpitations, cough, fever, abdominal pain, nausea/vomiting, diarrhea. Time Seen by Provider: 09/21/18 10:21 Chief Complaint (Nursing): Shortness Of Breath History Per: Patient History/Exam Limitations: no limitations Onset/Duration Of Symptoms: Other (1 month but worse today) Past Medical History Reviewed: Historical Data, Nursing Documentation, Vital Signs Vital Signs: Last Vital Signs Temp 98.6 F 09/21/18 10:31 Pulse 86 09/21/18 10:31 Resp 15 09/21/18 10:35 BP 152/98 H 09/21/18 10:31 Pulse Ox 100 09/21/18 10:35 - Medical History PMH: Diabetes, HTN Family History: States: No Known Family Hx - Social History Hx Alcohol Use: Yes Hx Substance Use: No - Immunization History Hx Tetanus Toxoid Vaccination: No Hx Influenza Vaccination: No Hx Pneumococcal Vaccination: No Review Of Systems Constitutional: Negative for: Fever, Chills Cardiovascular: Negative for: Chest Pain, Palpitations Respiratory: Positive for: Shortness of Breath. Negative for: Cough, SOB with E xcertion Gastrointestinal: Negative for: Nausea, Vomiting, Abdominal Pain, Diarrhea Skin: Negative for: Rash Neurological: Negative for: Weakness, Numbness, Headache, Dizziness Physical Exam - Physical Exam Appears: Well, Non-toxic, Other (anxious appearing, speaking in full sentences) Skin: Normal Color, Warm, Dry, Other (diffuse small psoriatic patches on face, torso/back, extremities) Head: Atraumatic, Normacephalic Eye(s): bilateral: Normal Inspection, PERRL, EOMI Oral Mucosa: Moist Tongue: Normal Appearing, No Swelling Lips: Normal Appearing, No Swelling Throat: Normal, No Erythema, No Exudate, No Drooling Neck: Normal, Trachea Midline, Supple Lymphatic: No Adenopathy Cardiovascular: Rhythm Regular Respiratory: Normal Breath Sounds, No Rales, No Rhonchi, No Wheezing Gastrointestinal/Abdominal: Normal Exam, Bowel Sounds, Soft, No Tenderness Extremity: Normal ROM, No Pedal Edema, No Calf Tenderness Neurological/Psych: Oriented x3, Normal Speech, Normal Cognition ED Course And Treatment - Laboratory Results Result Diagrams: 09/21/18 11:14 09/21/18 11:14 Lab Results: D-Dimer, Quantitative < 200 ng/mlDDU (0-243) 09/21/18 11:55 Troponin I < 0.0120 ng/mL (0.00-0.120) 09/21/18 11:14 Total Bilirubin 1.2 mg/dL (0.2-1.3) 09/21/18 11:14 AST 132 U/L (17-59) H D 09/21/18 11:14 ALT 104 U/L (21-72) H D 09/21/18 11:14 Alkaline Phosphatase 73 U/L (38-126) 09/21/18 11:14 Total Protein 8.8 g/dL (6.3-8.3) H 09/21/18 11:14 Albumin 5.1 g/dL (3.5-5.0) H 09/21/18 11:14 Globulin 3.7 gm/dL (2.2-3.9) 09/21/18 11:14 Albumin/Globulin Ratio 1.4 (1.0-2.1) 09/21/18 11:14 Urine Color Yellow (YELLOW) 09/21/18 11:16 Urine Clarity Clear (Clear) 09/21/18 11:16 Urine pH 7.0 (5.0-8.0) 09/21/18 11:16 Ur Specific [place] 1.013 (1.003-1.030) 09/21/18 11:16 Urine Protein Negative mg/dL (NEGATIVE) 09/21/18 11:16 Urine Glucose (UA) Normal mg/dL (Normal) 09/21/18 11:16 Urine Ketones Negative mg/dL (NEGATIVE) 09/21/18 11:16 Urine Blood Negative (NEGATIVE) 09/21/18 11:16 Urine Nitrate Negative (NEGATIVE) 09/21/18 11:16 Urine Bilirubin Negative (NEGATIVE) 09/21/18 11:16 Urine Urobilinogen 2.0 mg/dL (0.2-1.0) 09/21/18 11:16 Ur Leukocyte Esterase Neg Jackson/uL (Negative) 09/21/18 11:16 Urine WBC (Auto) < 1 /hpf (0-5) 09/21/18 11:16 Ur Squamous Epith Cells < 1 /hpf (0-5) 09/21/18 11:16 O2 Sat by Pulse Oximetry: 100 Disposition Counseled Patient/Family Regarding: Studies Performed, Diagnosis, Need For Followup, Rx Given - Disposition Referrals: Buster Nicole, CECIL, TOOLS ADMINISTRATOR [Advanced Practice Nurse] - Disposition: HOME/ ROUTINE Disposition Time: 13:30 Condition: STABLE Prescriptions: ALPRAZolam [Xanax] 0.25 mg PO Q6 PRN #15 tab PRN Reason: Anxiety Instructions: Anxiety, Adult (DC) Forms: [facility] (Kosovan) Print Language: BOTSWANAN - Clinical Impression Clinical Impression: Anxiety
[2018-09-21 13:39] VITALS: BP 136/87; PULSE 100; RESP 20; TEMP 98.3
--- NOTE | 2018-09-24 | CARD ---
APPROVED REPORT Date of service: 09/21/2018 EKG Measurement Heart [id number] AR [id number] <Conclusion> Normal sinus rhythm Nonspecific ST abnormality Abnormal ECG
== END 2018-09-21 13:52 | disposition home or self-care (01) ==
LOC: C.ER 10:17
DX: F41.9 Anxiety disorder, unspecified (principal)
CPT/HCPCS: 71045; 80053; 80324; 80345; 80346; 80349; 80353; 80358; 80361; 81001; 82550; 82553; 83992; 84443; 84484; 85025; 85378; 93005; 96361; 96374; 99285; C9113; J7030

== ENCOUNTER 2018-12-07 19:33 | Emergency (ER) | payer MEDICAID | END 2018-12-07 23:45 | disposition home or self-care (01) | LOC: C.ER 19:33 | CPT/HCPCS: 71045; 80053; 80324; 80345; 80346; 80349; 80353; 80358; 80361; 81001; 82550; 82553; 83992; 84443; 84484; 85025; 93005; 99284; J7040 ==